=== PATIENT | female | born 1930 | race Caucasian/White ===

== ENCOUNTER 2016-11-01 10:39 | Inpatient (IN) | payer MEDICAID, MEDICARE ==
[2016-11-01] MEDS ORDERED: Acetaminophen/HYDROcodone 325-5 MG Tab PO ONE (10:57)
[2016-11-01] MEDS ORDERED: Ondansetron 4 MG Tab.DIS PO PRN (10:58)
[2016-11-01] MEDS ORDERED: HYDROmorphone 2 MG/ML SDV IVPUSH ONE (12:02)
--- NOTE | 2016-11-01 12:15 | EDM.PDOC ---
ED HPI GENERAL MEDICAL PROBLEM - General Chief Complaint: Back Pain or Injury Stated Complaint: BACK PAIN AND RIGHT HIP PAIN Time Seen by Provider: 11/01/16 11:00 Source of Information: Reports: Patient History Limitations: Reports: No Limitations - History of Present Illness INITIAL COMMENTS - FREE TEXT/NARRATIVE: Patient is an 86 year old woman who was moving totes 2 days ago. She slipped and fell onto her right hip area in the doorway area of the room she was putting her totes in. She immediately had pain in her right hip area which got worse yesterday and today. It hurts more with movement. No fever or chills, nausea or vomiting. No other complaints. Onset Date: 10/30/16 Onset Time: 19:00 Duration: Day(s): (2 days ago fell against doorway on right hip area.) Location: Reports: Pelvis, Radiates to (right hip and upper leg) Quality: Reports: Ache Severity: Moderate Improves with: Reports: Immobilization Worsens with: Reports: Movement Context: Reports: Trauma (Fell against doorway onto right hip area 2 days ago.) Associated Symptoms: Reports: No Other Symptoms Right Back Pain Score (Numeric/FACES): 10 - Related Data Allergies Allergy/AdvReac Type Severity Reaction Status Date / Time No Known Allergies Allergy Verified 11/01/16 10:55 Home Meds: Home Meds Aspirin [Halfprin] 81 mg PO DAILY 11/01/16 [History] Atenolol 50 mg PO DAILY 11/01/16 [History] Calcium Carbonate/Vitamin D3 [Calcium 600-Vit D3 800 Tab] 1 each PO DAILY [History] Clobetasol [Temovate 0.05% Oint] 1 applic TOP BID 11/01/16 [History] Loperamide [Imodium] 2 mg PO Q12HR PRN 11/01/16 [History] Mirabegron [Myrbetriq] 50 mg PO DAILY 11/01/16 [History] Multivitamin [Multi-Day Vitamins] 1 each PO DAILY 11/01/16 [History] Oxybutynin 5 mg PO TID 11/01/16 [History] Sertraline [Zoloft] 100 mg PO DAILY 11/01/16 [History] Past Medical History Endocrine/Metabolic History: Reports: Diabetes, Type II, Other (See Below) Other Endocrine/Metabolic History: diabetes controlled by diet Social & Family History - Tobacco Use Smoking Status *Q: Never Smoker - Recreational Drug Use Recreational Drug Use: No ED ROS GENERAL - Review of Systems Review Of Systems: See Below Constitutional: Reports: No Symptoms HEENT: Reports: No Symptoms Respiratory: Reports: No Symptoms Cardiovascular: Reports: No Symptoms Endocrine: Reports: No Symptoms GI/Abdominal: Reports: No Symptoms : Reports: No Symptoms Musculoskeletal: Reports: Back Pain, Joint Pain (Right hip and pelvis area.) Skin: Reports: No Symptoms Neurological: Reports: Gait Disturbance (Hurts to walk and has pain radiating down right leg.) Psychiatric: Reports: No Symptoms Hematologic/Lymphatic: Reports: No Symptoms Immunologic: Reports: No Symptoms ED EXAM,LOWER BACK PAIN/INJURY - Physical Exam Exam: See Below Exam Limited By: No Limitations General Appearance: Alert, WD/WN, No Apparent Distress Eye Exam: Bilateral Eye: EOMI, Normal Fundi, Normal Inspection, PERRL Ears: Normal External Exam, Normal Canal, Hearing Grossly Normal, Normal TMs Nose: Normal Inspection, Normal Mucosa, No Blood Throat/Mouth: Normal Inspection, Normal Lips, Normal Teeth, Normal Gums, Normal Oropharynx, Normal Voice, No Airway Compromise Head: Atraumatic, Normocephalic Neck: Normal Inspection, Supple, Non-Tender, Full Range of Motion Respiratory/Chest: No Respiratory Distress, Lungs Clear, Normal Breath Sounds, No Accessory Muscle Use, Chest Non-Tender Cardiovascular: Normal Peripheral Pulses, Regular Rate, Rhythm, No Edema, No Gallop, No JVD, No Murmur, No Rub GI/Abdominal: Normal Bowel Sounds, Soft, Non-Tender, No Organomegaly, No Distention, No Abnormal Bruit, No Mass Back Exam: Other (Lumbar region has pain, worse on the right.) Extremities: Leg Pain (Right with right hip pain.), Limited Range of Motion Neurological: Abnormal Gait (Cannot walk due to pain around right hip.) Psychiatric: Normal Affect, Normal Mood Skin Exam: Warm, Dry, Intact, Normal Color, No Rash Lymphatic: No Adenopathy Course - Vital Signs Text/Narrative:: Uneventful ED course. She got some pain relief with oral Lortab 5-325 mg and Zofran 4 mg for nausea. Her lab work was normal but her hip and pelvis x-rays showed a nondisplaced fracture of the right pelvis near the right sciatic notch. 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 Due to her pelvis fracture and her inability to ambulate she will be admitted to Dr. Keenan's service in the hospital for pain control and PT. Last Recorded V/S: Last Vital Signs Temp 37.4 C 11/01/16 10:57 Pulse 50 L 11/01/16 10:57 Resp 18 11/01/16 10:57 BP 152/100 H 11/01/16 10:57 Pulse Ox 95 11/01/16 10:57 - Orders/Labs/Meds Orders: Active Orders 24 hr Category Date Time Status Hip Min 2V or 3V w Pelvis Rt [CR] Stat Exams 11/01/16 11:26 Taken Ondansetron [Zofran ODT] Med 11/01/16 10:58 Active 4 mg PO ONETIME PRN Medication Orders Ondansetron HCl (Zofran Odt) 4 mg PO ONETIME PRN PRN Reason: Nausea Last Admin: 11/01/16 11:08 Dose: 4 mg Labs: Laboratory Tests 11/01/16 11/01/16 Range/Units 11:03 11:03 WBC 8.4 (4.5-12.0) X10-3/uL RBC 3.91 (3.23-5.20) x10(6)uL Hgb 12.7 (11.5-15.5) g/dL Hct 37.3 (30.0-51.3) % MCV 95.3 (80-96) fL MCH 32.4 (27.7-33.6) pg MCHC 34.0 (32.2-35.4) g/dL RDW 16.6 H (11.5-15.5) % Plt Count 143 (125-369) X10(3)uL MPV 8.1 (7.4-10.4) fL Neut % (Auto) 59.5 (46-82) % Lymph % (Auto) 26.2 (13-37) % [place] % (Auto) 8.0 (4-12) % Eos % (Auto) 5 (1.0-5.0) % Baso % (Auto) 1 (0-2) % Neut # (Auto) 5.0 (1.6-8.3) # Lymph # (Auto) 2.2 (0.6-5.0) # [place] # (Auto) 0.7 (0.0-1.3) # Eos # (Auto) 0.4 (0.0-0.8) # Baso # (Auto) 0.1 (0.0-0.2) # Sodium 141 (135-145) mmol/L Potassium 3.7 (3.5-5.3) mmol/L Chloride 107 (100-110) mmol/L Carbon Dioxide 28 (23-29) mmol/L BUN 12 (8-23) mg/dL Creatinine 0.7 (0.6-1.3) mg/dL Est Cr Clr Drug Dosing 53.01 mL/min Estimated GFR (MDRD) > 60 (>60) BUN/Creatinine Ratio 17.1 (9-20) Glucose 112 (80-116) mg/dL Calcium 9.9 (8.6-10.2) mg/dL Total Bilirubin 1.2 (0.1-1.3) mg/dL AST 18 (5-27) IU/L ALT 13 L (14-26) IU/L Alkaline Phosphatase 65 (56-112) IU/L Total Protein 6.9 (6.0-8.0) g/dL Albumin 3.6 (3.2-4.6) g/dL Globulin 3.3 g/dL Albumin/Globulin Ratio 1.1 Meds: Medications Generic Name Dose Route Start Last Admin Trade Name Freq PRN Reason Stop Dose Admin Ondansetron HCl 4 mg 11/01/16 10:58 11/01/16 11:08 Zofran Odt PO 4 mg ONETIME PRN Administration Nausea Discontinued Medications Generic Name Dose Route Start Last Admin Trade Name Freq PRN Reason Stop Dose Admin Hydrocodone Bitart/Acetaminophen 1 tab 11/01/16 10:57 11/01/16 11:09 [place] 325-5 Mg PO 11/01/16 10:58 1 tab ONETIME ONE Administration Hydromorphone HCl 0.5 mg 11/01/16 12:02 Dilaudid IVPUSH 11/01/16 12:03 ONETIME ONE Departure - Departure Time of Disposition: 12:29 Disposition: Admitted As Inpatient 65 Condition: Good Clinical Impression: Pelvis fracture, right - Discharge Information Forms: ED Department Discharge - My Orders Last 24 Hours: My Active Orders 11/01/16 10:58 Ondansetron [Zofran ODT] 4 mg PO ONETIME PRN 11/01/16 11:26 Hip Min 2V or 3V w Pelvis Rt [CR] Stat - Assessment/Plan Last 24 Hours: My Active Orders 11/01/16 10:58 Ondansetron [Zofran ODT] 4 mg PO ONETIME PRN 11/01/16 11:26 Hip Min 2V or 3V w Pelvis Rt [CR] Stat
[2016-11-01] MEDS ORDERED: Sodium Chloride 0.9% 10 ML Syringe FLUSH PRN (13:18)
[2016-11-01] MEDS ORDERED: Loperamide 2 MG Cap PO PRN (13:21)
[2016-11-01] MEDS ORDERED: Morphine 2 MG/ML Syringe IVPUSH PRN (13:22)
--- NOTE | 2016-11-01 13:28 | PCM.HP ---
H&P History of Present Illness - General Date of Service: 11/01/16 Admit Problem/Dx: Admission Diagnosis/Problem Admission Diagnosis/Problem Closed fracture of pelvis Source of Information: Patient History Limitations: Reports: No Limitations - History of Present Illness Initial Comments - Free Text/Narative: This is an 86-year-old female patient states she fell against a door frame 2 days ago. She states she has some pain yesterday in her right lower back and then today she couldn't get up. She is brought to the ER and found to have a pelvic fracture per ER doctor. He stated that hydrocodone did not touch her pain she had have Dilaudid. So she was admitted for pain control, PT/OT. She has a little bit of pain in her right leg when she was the lipase she has no strength loss or legs, or weakness. She has incontinence normally with no bowel or bladder dysfunction other than the normal. She denies dysuria, pyuria, hematuria. She's not been ill. Right Back Pain Score (Numeric/FACES): 9 - Related Data Allergies/Adverse Reactions: Allergies Allergy/AdvReac Type Severity Reaction Status Date / Time No Known Allergies Allergy Verified 11/01/16 10:55 Home Medications: Home Meds Aspirin [Halfprin] 81 mg PO DAILY 11/01/16 [History] Atenolol 50 mg PO DAILY 11/01/16 [History] Calcium Carbonate/Vitamin D3 [Calcium 600-Vit D3 800 Tab] 1 each PO DAILY [History] Clobetasol [Temovate 0.05% Oint] 1 applic TOP BID 11/01/16 [History] Loperamide [Imodium] 2 mg PO Q12HR PRN 11/01/16 [History] Mirabegron [Myrbetriq] 50 mg PO DAILY 11/01/16 [History] Multivitamin [Multi-Day Vitamins] 1 each PO DAILY 11/01/16 [History] Oxybutynin 5 mg PO TID 11/01/16 [History] Sertraline [Zoloft] 100 mg PO DAILY 11/01/16 [History] Past Medical History HEENT History: Reports: Other (See Below) (Hearing loss) Cardiovascular History: Reports: Hypertension Genitourinary History: Reports: Urinary Incontinence, Other (See Below) ( Overactive bladder) Psychiatric History: Reports: Depression Endocrine/Metabolic History: Reports: Diabetes, Type II, Other (See Below) Other Endocrine/Metabolic History: diabetes controlled by diet Social & Family History - Tobacco Use Smoking Status *Q: Never Smoker Second Hand Smoke Exposure: No - Caffeine Use Caffeine Use: Reports: Coffee Caffeine Use Comment: 4 cups per day - Recreational Drug Use Recreational Drug Use: No H&P Review of Systems - Review of Systems: Review Of Systems: See Below General: Reports: No Symptoms HEENT: Reports: No Symptoms Pulmonary: Reports: Shortness of Breath (Normal for her she states). Denies: Wheezing, Sputum, Hemoptysis Cardiovascular: Reports: No Symptoms Gastrointestinal: Reports: No Symptoms Genitourinary: Reports: Incontinence (Normal for her) Musculoskeletal: Reports: Back Pain Skin: Reports: No Symptoms Psychiatric: Reports: No Symptoms Neurological: Reports: No Symptoms Hematologic/Lymphatic: Reports: No Symptoms Immunologic: Reports: No Symptoms Exam - Exam Exam: See Below - Vital Signs Vital Signs: Last Vital Signs Temp 98.1 F 11/01/16 12:49 Pulse 49 L 11/01/16 12:49 Resp 18 11/01/16 12:49 BP 217/92 H 11/01/16 12:49 Pulse Ox 94 L 11/01/16 12:49 Weight: 153 lb - Exam General: Alert, Oriented, Cooperative, Other (Hard of hearing) HEENT: PERRLA, Posterior Pharynx Clear, TMs Clear Neck: Supple, Trachea Midline Lungs: Clear to Auscultation, Normal Respiratory Effort. No: Crackles, Rales, Rhonchi Cardiovascular: Regular Rate, Regular Rhythm, Normal S1, Normal S2. No: Systolic Murmur, Diastolic Murmur GI/Abdominal Exam: Normal Bowel Sounds, Soft, Non-Tender, No Distention, No Mass Back Exam: Normal Inspection, Muscle Spasm Extremities: Normal Inspection, Non-Tender, No Pedal Edema Skin: Warm, Dry, Intact Neurological: Normal Speech, Normal Tone Neuro Extensive - Mental Status: Alert, Oriented x3, Normal Mood/Affect, Normal Cognition, Memory Intact Psychiatric: Alert, Normal Affect, Normal Mood - Patient Data Result Diagrams: 11/01/16 11:03 11/01/16 11:03 *Q Meaningful Use (ADM) - VTE *Q VTE Criteria *Q: - Stroke *Q Stroke Criteria *Q: - AMI *Q AMI Criteria *Q: - Problem List (1) Hypertension SNOMED Code(s): 15387861 ICD Code: I10 - ESSENTIAL (PRIMARY) HYPERTENSION Status: Acute Priority: Low Current Visit: Yes (2) Diabetes type 2, controlled SNOMED Code(s): 72506356 ICD Code: E11.9 - TYPE 2 DIABETES MELLITUS WITHOUT COMPLICATIONS Status: Acute Priority: Low Current Visit: Yes (3) Urinary incontinence SNOMED Code(s): 057990746 ICD Code: R32 - UNSPECIFIED URINARY INCONTINENCE Status: Acute Current Visit: No (4) Palliative care status SNOMED Code(s): 134842859 ICD Code: Z51.5 - ENCOUNTER FOR PALLIATIVE CARE Status: Acute Current Visit: Yes (5) Depression SNOMED Code(s): 73999959 ICD Code: F32.9 - MAJOR DEPRESSIVE DISORDER, SINGLE EPISODE, UNSPECIFIED Status: Acute Current Visit: No (6) Pelvis fracture, right SNOMED Code(s): 79210691 ICD Code: S32.9XXA - FRACTURE OF UNSP PARTS OF LUMBOSACRAL SPINE AND PELVIS, INIT Status: Acute Current Visit: Yes Problem List Initiated/Reviewed/Updated: Yes Orders Last 24hrs: Active Orders 24 hr Category Date Time Status Patient Status [ADT] Routine ADT 11/01/16 13:18 Active Bedrest Bedside Commode [RC] ASDIRECTED Care 11/01/16 13:18 Active Blood Glucose Check, Bedside [RC] BIDMEALS Care 11/01/16 13:18 Active Oxygen Therapy [RC] PRN Care 11/01/16 13:18 Active VTE/DVT Education [RC] Per Unit Routine Care 11/01/16 13:18 Active Vital Signs [RC] Q4H Care 11/01/16 13:18 Active OT Evaluation and Treatment [CONS] Routine Cons 11/01/16 13:18 Active PT Evaluation and Treatment [CONS] Routine Cons 11/01/16 13:18 Active Regular Diet [DIET] Diet 11/01/16 Dinner Active Aspirin [Halfprin] Med 11/02/16 09:00 Active 81 mg PO DAILY Atenolol [Tenormin] Med 11/02/16 09:00 Active 50 mg PO DAILY Calcium Carbonate/Vitamin D3 [Calcium 600-Vit D3 800 Med 11/02/16 09:00 Ordered Tab] 1 each PO DAILY Clobetasol [Temovate 0.05% Oint] Med 11/01/16 21:00 Ordered DOSE gm TOP BID Enoxaparin [Lovenox] Med 11/01/16 13:30 Ordered 30 mg SUBCUT DAILY Loperamide [Imodium] Med 11/01/16 13:21 Ordered 2 mg PO Q12HR PRN Mirabegron [Myrbetriq] Med 11/02/16 09:00 Ordered 50 mg PO DAILY Morphine Med 11/01/16 13:22 Ordered 2 mg IVPUSH Q2H PRN Multivitamins [Tab-A-Bessie] Med 11/02/16 09:00 Ordered DOSE tab PO DAILY Oxybutynin Med 11/01/16 14:00 Ordered 5 mg PO TID Sertraline [Zoloft] Med 11/02/16 09:00 Ordered 100 mg PO DAILY Sodium Chloride 0.9% [Saline Flush] Med 11/01/16 13:18 Active 10 ml FLUSH ASDIRECTED PRN traMADol [Ultram] Med 11/01/16 13:30 Ordered 50 mg PO Q6H Saline Lock Insert [OM.PC] Routine Oth 11/01/16 13:18 Ordered Sequential Compression Device [OM.PC] Per Unit Routine Oth 11/01/16 13:19 Ordered Resuscitation Status Routine Resus Stat 11/01/16 13:18 Ordered Medication Orders Aspirin (Halfprin) 81 mg PO DAILY [facility] Atenolol (Tenormin) 50 mg PO DAILY [facility] Clobetasol Propionate (Temovate 0.05% Oint) gm TOP BID [facility] Enoxaparin Sodium (Lovenox) 30 mg SUBCUT DAILY [facility] Loperamide HCl (Imodium) 2 mg PO Q12HR PRN PRN Reason: Diarrhea Multivitamins/Minerals/Vitamin C (Tab-A-Bessie) tab PO DAILY [facility] Non-Formulary Medication (Calcium Carbonate/Vitamin D3 [Calcium 600-Vit D3 800 Tab]) 1 each PO DAILY [facility] Non-Formulary Medication (Mirabegron [Myrbetriq]) 50 mg PO DAILY [facility] Ondansetron HCl (Zofran Odt) 4 mg PO ONETIME PRN PRN Reason: Nausea Last Admin: 11/01/16 11:08 Dose: 4 mg Sodium Chloride (Saline Flush) 10 ml FLUSH ASDIRECTED PRN PRN Reason: Keep Vein Open Assessment/Plan Comment:: 1. Patient unable to walk so admit her for acute inpatient. 2. Tramadol 50 mg 4 times a day with MS IV when necessary. 3. Regular diet this gluten-free. She's been controlling her diet on a regular diet. 4. Accu-Cheks twice a day. Her blood sugars run high will consider diabetic diet. 5. Patient wants to be a full code. 6. Bed rest with bedside commode 7. PT/OT 8. Continue her home medications.
[2016-11-01] MEDS: traMADol 50 MG Tab PO SCH ×2 (14:02→19:21)
[2016-11-01] MEDS: Oxybutynin 5 MG Tab PO SCH ×2 (14:02→20:11)
[2016-11-01] MEDS: Enoxaparin 40 MG/0.4 ML Syringe SUBCUT SCH (14:03)
[2016-11-01] MEDS: Clobetasol 0.05% Ointment 15 GM Tube TOP SCH (21:45)
[2016-11-02] MEDS: traMADol 50 MG Tab PO SCH ×4 (02:15→21:05)
--- NOTE | 2016-11-02 08:20 | PCM.PN ---
- General Info Date of Service: 11/02/16 Admission Dx/Problem (Free Text): Patient states she has some chest pressure that started last night. She thinks is from sleeping on her back. She normally sleeps on her right side. She denies shortness of breath, arm pain, jaw pain, nausea, diaphoresis. She still have an back pain on the right side but the tramadol's helping. Nurses report her heart rate was in the 40s last night and oxygen saturations low. - Patient Data Vitals - Most Recent: Last Vital Signs Temp 98 F 11/02/16 04:00 Pulse 48 L 11/02/16 04:00 Resp 18 11/02/16 00:00 BP 178/71 H 11/02/16 00:00 Pulse Ox 91 L 11/02/16 00:00 Weight - Most Recent: 153 lb Lab Results Last 24 Hours: Laboratory Results - last 24 hr 11/01/16 Range/Units 17:26 POC Glucose 141 H (80-116) mg/dL Med Orders - Current: Current Medications Aspirin (Halfprin) 81 mg PO DAILY [facility] Atenolol (Tenormin) 50 mg PO DAILY [facility] Calcium Carbonate (Calcium Carbonate/Vitamin D 1250 Mg-200 Unit) 1 tab PO DAILY [facility] Clobetasol Propionate (Temovate 0.05% Oint) 0 gm TOP BID [facility] Last Admin: 11/01/16 21:45 Dose: Not Given Enoxaparin Sodium (Lovenox) 40 mg SUBCUT DAILY [facility] Last Admin: 11/01/16 14:03 Dose: 40 mg Loperamide HCl (Imodium) 2 mg PO Q12H PRN PRN Reason: Diarrhea Morphine Sulfate (Morphine) 2 mg IVPUSH Q2H PRN PRN Reason: Pain Multivitamins/Minerals/Vitamin C (Tab-A-Bessie) 1 tab PO DAILY [facility] Mirabegron [ Myrbetriq] 50 MgPt Own 50 mg PO DAILY [facility] Ondansetron HCl (Zofran Odt) 4 mg PO ONETIME PRN PRN Reason: Nausea Last Admin: 11/01/16 11:08 Dose: 4 mg Oxybutynin Chloride (Oxybutynin) 5 mg PO TID [facility] Last Admin: 11/01/16 20:11 Dose: 5 mg Sertraline HCl (Zoloft) 100 mg PO DAILY [facility] Sodium Chloride (Saline Flush) 10 ml FLUSH ASDIRECTED PRN PRN Reason: Keep Vein Open Tramadol HCl (Ultram) 50 mg PO Q6H [facility] Last Admin: 11/02/16 02:15 Dose: 50 mg Discontinued Medications Hydrocodone Bitart/Acetaminophen ([place] 325-5 Mg) 1 tab PO ONETIME ONE Stop: 11/01/16 10:58 Last Admin: 11/01/16 11:09 Dose: 1 tab Hydromorphone HCl (Dilaudid) 0.5 mg IVPUSH ONETIME ONE Stop: 11/01/16 12:03 Last Admin: 11/01/16 12:21 Dose: Not Given - Exam General: Alert, Oriented, Cooperative Lungs: Clear to Auscultation, Normal Respiratory Effort Cardiovascular: Regular Rate, Regular Rhythm, No Murmurs Extremities: No Pedal Edema - Problem List & Annotations (1) Hypertension SNOMED Code(s): 03627532 Code(s): I10 - ESSENTIAL (PRIMARY) HYPERTENSION Status: Acute Priority: Low Current Visit: Yes (2) Diabetes type 2, controlled SNOMED Code(s): 33769497 Code(s): E11.9 - TYPE 2 DIABETES MELLITUS WITHOUT COMPLICATIONS Status: Acute Priority: Low Current Visit: Yes (3) Urinary incontinence SNOMED Code(s): 341426646 Code(s): R32 - UNSPECIFIED URINARY INCONTINENCE Status: Acute Current Visit: No (4) Palliative care status SNOMED Code(s): 822810625 Code(s): Z51.5 - ENCOUNTER FOR PALLIATIVE CARE Status: Acute Current Visit: Yes (5) Depression SNOMED Code(s): 10714780 Code(s): F32.9 - MAJOR DEPRESSIVE DISORDER, SINGLE EPISODE, UNSPECIFIED Status: Acute Current Visit: No (6) Pelvis fracture, right SNOMED Code(s): 30499860 Code(s): S32.9XXA - FRACTURE OF UNSP PARTS OF LUMBOSACRAL SPINE AND PELVIS, INIT Status: Acute Current Visit: Yes (7) Bradycardia SNOMED Code(s): 88580743 Code(s): R00.1 - BRADYCARDIA, UNSPECIFIED Status: Acute Current Visit: Yes (8) Hypoxia SNOMED Code(s): 759821151, 548197985 Code(s): R09.02 - HYPOXEMIA Status: Acute Current Visit: Yes (9) Chest pain SNOMED Code(s): 19956616 Code(s): R07.9 - CHEST PAIN, UNSPECIFIED Status: Acute Current Visit: Yes - Problem List Review Problem List Initiated/Reviewed/Updated: Yes - My Orders Last 24 Hours: My Active Orders 11/01/16 13:18 Patient Status [ADT] Routine Bedrest Bedside Commode [RC] ASDIRECTED Blood Glucose Check, Bedside [RC] 07,1730 Oxygen Therapy [RC] PRN Vital Signs [RC] 04,08,12,16,20,00 OT Evaluation and Treatment [CONS] Routine PT Evaluation and Treatment [CONS] Routine Sodium Chloride 0.9% [Saline Flush] 10 ml FLUSH ASDIRECTED PRN Saline Lock Insert [OM.PC] Routine Resuscitation Status Routine 11/01/16 13:19 Sequential Compression Device [OM.PC] Per Unit Routine 11/01/16 13:21 Loperamide [Imodium] 2 mg PO Q12H PRN 11/01/16 13:22 Morphine 2 mg IVPUSH Q2H PRN 11/01/16 13:30 Enoxaparin [Lovenox] 40 mg SUBCUT DAILY traMADol [Ultram] 50 mg PO Q6H 11/01/16 14:00 Oxybutynin 5 mg PO TID 11/01/16 21:00 Clobetasol [Temovate 0.05% Oint] 0 gm TOP BID 11/01/16 Dinner Regular Diet [DIET] 11/02/16 07:39 UA W/MICROSCOPIC [URIN] Routine 11/02/16 09:00 Aspirin [Halfprin] 81 mg PO DAILY Atenolol [Tenormin] 50 mg PO DAILY Calcium Carbonate/Vitamin D3 [Calcium Carbonate/Vitamin D 1250 MG-200 Unit] 1 tab PO DAILY Mirabegron [Myrbetriq] 50 mg PO DAILY Multivitamins [Tab-A-Bessie] 1 tab PO DAILY Sertraline [Zoloft] 100 mg PO DAILY - Assessment Assessment:: 1. EKG, troponin, chest x-ray portable 2. Telemetry to watch her heart rate. 3. O2 to keep sats greater than 88%. 4. Up in chair and she may transfer to chair. - Plan Plan:: 1. Patient unable to walk so admit her for acute inpatient. 2. Tramadol 50 mg 4 times a day with MS IV when necessary. 3. Regular diet this gluten-free. She's been controlling her diet on a regular diet. 4. Accu-Cheks twice a day. Her blood sugars run high will consider diabetic diet. 5. Patient wants to be a full code. 6. Bed rest with bedside commode 7. PT/OT 8. Continue her home medications.
[2016-11-02] MEDS: Aspirin 81 MG Tab.EC PO SCH (08:42)
[2016-11-02] MEDS: Calcium Carbonate/Vitamin D3 1250 MG-200 Unit Tab PO SCH (08:42)
[2016-11-02] MEDS: Enoxaparin 40 MG/0.4 ML Syringe SUBCUT SCH (08:43)
[2016-11-02] MEDS: MIRABEGRON 50 MG PO SCH ×2 (08:44→10:12)
[2016-11-02] MEDS: Multivitamin Tab PO SCH (08:45)
[2016-11-02] MEDS: Oxybutynin 5 MG Tab PO SCH ×3 (08:45→21:05)
[2016-11-02] MEDS: Lisinopril 10 MG Tab PO SCH (08:51)
[2016-11-02] MEDS ORDERED: Sertraline 100 MG Tab PO SCH (09:00)
[2016-11-02] MEDS ORDERED: Atenolol 50 MG Tab PO SCH (09:00)
[2016-11-02] MEDS ORDERED: Sertraline 50 MG Tab ONE (09:01)
[2016-11-02] MEDS ORDERED: Sertraline 50 MG Tab PO ONE (09:15)
[2016-11-02] MEDS: Clobetasol 0.05% Ointment 15 GM Tube TOP SCH ×2 (10:13→21:05)
[2016-11-03] MEDS: traMADol 50 MG Tab PO SCH ×4 (02:08→20:37)
--- NOTE | 2016-11-03 08:05 | PCM.PN ---
- General Info Date of Service: 11/03/16 Admission Dx/Problem (Free Text): Patient states she still has her right low back pain. She says a tramadol does help considerably. She states a couple weeks ago she had her chest in her tub. And therefore she's been having chest wall pain. She has some this morning. Hurts when she moves in certain directions. - Patient Data Vitals - Most Recent: Last Vital Signs Temp 97 F 11/03/16 02:22 Pulse 79 11/03/16 04:00 Resp 18 11/03/16 04:00 BP 168/70 H 11/03/16 04:00 Pulse Ox 91 L 11/03/16 04:00 Weight - Most Recent: 153 lb I&O - Last 24 Hours: Intake & Output 11/02/16 11/03/16 11/03/16 22:59 06:59 14:59 Intake Total 150 150 Balance 150 150 Lab Results Last 24 Hours: Laboratory Results - last 24 hr 11/02/16 11/02/16 11/02/16 Range/Units 07:14 08:32 11:25 POC Glucose 106 (80-116) mg/dL Troponin I < 0.01 L (0.02-0.06) NG/ML Urine Color Yellow (YELLOW) Urine Appearance Clear (CLEAR) Urine pH 6.5 (5.0-6.5) Ur Specific [place] 1.015 (1.010-1.025) Urine Protein Negative (NEGATIVE) mg/dL Urine Glucose (UA) Normal (NEGATIVE) mg/dL Urine Ketones Negative (NEGATIVE) mg/dL Urine Occult Blood Negative (NEGATIVE) Urine Nitrite Negative (NEGATIVE) Urine Bilirubin Negative (NEGATIVE) Urine Urobilinogen Normal (NEGATIVE) mg/dL Ur Leukocyte Esterase Negative (NEGATIVE) Urine RBC Not seen (0) Urine WBC 0-5 (0) Ur Squamous Epith Cells Few H (NS,R,O) Urine Bacteria Rare H (NS) 11/02/16 Range/Units 16:55 POC Glucose 133 H (80-116) mg/dL Troponin I (0.02-0.06) NG/ML Urine Color (YELLOW) Urine Appearance (CLEAR) Urine pH (5.0-6.5) Ur Specific [place] (1.010-1.025) Urine Protein (NEGATIVE) mg/dL Urine Glucose (UA) (NEGATIVE) mg/dL Urine Ketones (NEGATIVE) mg/dL Urine Occult Blood (NEGATIVE) Urine Nitrite (NEGATIVE) Urine Bilirubin (NEGATIVE) Urine Urobilinogen (NEGATIVE) mg/dL Ur Leukocyte Esterase (NEGATIVE) Urine RBC (0) Urine WBC (0) Ur Squamous Epith Cells (NS,R,O) Urine Bacteria (NS) Med Orders - Current: Current Medications Aspirin (Halfprin) 81 mg PO DAILY [facility] Last Admin: 11/02/16 08:42 Dose: 81 mg Calcium Carbonate (Calcium Carbonate/Vitamin D 1250 Mg-200 Unit) 1 tab PO DAILY [facility] Last Admin: 11/02/16 08:42 Dose: 1 tab Clobetasol Propionate (Temovate 0.05% Oint) 0 gm TOP BID [facility] Last Admin: 11/02/16 21:05 Dose: 1 applic Enoxaparin Sodium (Lovenox) 40 mg SUBCUT DAILY [facility] Last Admin: 11/02/16 08:43 Dose: 40 mg Lisinopril (Prinivil) 10 mg PO DAILY [facility] Last Admin: 11/02/16 08:51 Dose: 10 mg Loperamide HCl (Imodium) 2 mg PO Q12H PRN PRN Reason: Diarrhea Morphine Sulfate (Morphine) 2 mg IVPUSH Q2H PRN PRN Reason: Pain Last Admin: 11/02/16 12:55 Dose: 2 mg Multivitamins/Minerals/Vitamin C (Tab-A-Bessie) 1 tab PO DAILY [facility] Last Admin: 11/02/16 08:45 Dose: 1 tab Mirabegron [ Myrbetriq] 50 MgPt Own 50 mg PO DAILY [facility] Last Admin: 11/02/16 10:12 Dose: Not Given Ondansetron HCl (Zofran Odt) 4 mg PO ONETIME PRN PRN Reason: Nausea Last Admin: 11/01/16 11:08 Dose: 4 mg Oxybutynin Chloride (Oxybutynin) 5 mg PO TID [facility] Last Admin: 11/02/16 21:05 Dose: 5 mg Sertraline HCl (Zoloft) 100 mg PO DAILY [facility] Sodium Chloride (Saline Flush) 10 ml FLUSH ASDIRECTED PRN PRN Reason: Keep Vein Open Last Admin: 11/02/16 12:54 Dose: 10 ml Tramadol HCl (Ultram) 50 mg PO Q6H [facility] Last Admin: 11/03/16 02:08 Dose: 50 mg Discontinued Medications Hydrocodone Bitart/Acetaminophen ([place] 325-5 Mg) 1 tab PO ONETIME ONE Stop: 11/01/16 10:58 Last Admin: 11/01/16 11:09 Dose: 1 tab Atenolol (Tenormin) 50 mg PO DAILY [facility] Hydromorphone HCl (Dilaudid) 0.5 mg IVPUSH ONETIME ONE Stop: 11/01/16 12:03 Last Admin: 11/01/16 12:21 Dose: Not Given Sertraline HCl (Zoloft) 100 mg PO DAILY [facility] Sertraline HCl (Zoloft) Confirm Administered Dose 100 mg .ROUTE .STK-MED ONE Stop: 11/02/16 09:02 Last Admin: 11/02/16 10:11 Dose: Not Given Sertraline HCl (Zoloft) 100 mg PO ONETIME ONE Stop: 11/02/16 09:16 Last Admin: 11/02/16 10:11 Dose: 100 mg - Exam General: Alert, Oriented, Cooperative Lungs: Clear to Auscultation, Normal Respiratory Effort Cardiovascular: Regular Rate, Regular Rhythm, No Murmurs, Other (Chest wall pain right side on palpation.) - Problem List & Annotations (1) Hypertension SNOMED Code(s): 87177965 Code(s): I10 - ESSENTIAL (PRIMARY) HYPERTENSION Status: Acute Priority: Low Current Visit: Yes (2) Diabetes type 2, controlled SNOMED Code(s): 29918575 Code(s): E11.9 - TYPE 2 DIABETES MELLITUS WITHOUT COMPLICATIONS Status: Acute Priority: Low Current Visit: Yes (3) Urinary incontinence SNOMED Code(s): 240669038 Code(s): R32 - UNSPECIFIED URINARY INCONTINENCE Status: Acute Current Visit: No (4) Palliative care status SNOMED Code(s): 000130002 Code(s): Z51.5 - ENCOUNTER FOR PALLIATIVE CARE Status: Acute Current Visit: Yes (5) Depression SNOMED Code(s): 45579881 Code(s): F32.9 - MAJOR DEPRESSIVE DISORDER, SINGLE EPISODE, UNSPECIFIED Status: Acute Current Visit: No (6) Pelvis fracture, right SNOMED Code(s): 45565713 Code(s): S32.9XXA - FRACTURE OF UNSP PARTS OF LUMBOSACRAL SPINE AND PELVIS, INIT Status: Acute Current Visit: Yes (7) Bradycardia SNOMED Code(s): 22524372 Code(s): R00.1 - BRADYCARDIA, UNSPECIFIED Status: Acute Current Visit: Yes (8) Hypoxia SNOMED Code(s): 280623657, 274176120 Code(s): R09.02 - HYPOXEMIA Status: Acute Current Visit: Yes (9) Chest wall pain SNOMED Code(s): 760612698 Code(s): R07.89 - OTHER CHEST PAIN Status: Acute Current Visit: Yes (10) Palliative care patient SNOMED Code(s): 795564644 Code(s): Z51.5 - ENCOUNTER FOR PALLIATIVE CARE Status: Acute Current Visit: Yes - Problem List Review Problem List Initiated/Reviewed/Updated: Yes - My Orders Last 24 Hours: My Active Orders 11/02/16 08:21 EKG Documentation Completion [RC] ASDIRECTED Telemetry Monitoring [Cardiac Monitoring] [RC] EKG 12 Lead [EK] Stat 11/02/16 08:22 CXR [Chest 1V Frontal] [CR] Routine 11/02/16 08:23 Up to Chair [RC] ASDIRECTED 11/02/16 09:00 Aspirin [Halfprin] 81 mg PO DAILY Calcium Carbonate/Vitamin D3 [Calcium Carbonate/Vitamin D 1250 MG-200 Unit] 1 tab PO DAILY Lisinopril [Prinivil] 10 mg PO DAILY Mirabegron [Myrbetriq] 50 mg PO DAILY Multivitamins [Tab-A-Bessie] 1 tab PO DAILY 11/03/16 09:00 Sertraline [Zoloft] 100 mg PO DAILY - Plan Plan:: 1. DC telemetry 2. PT/OT eval today. 3. DC IV. 4. Start lisinopril for elevated blood pressure.
[2016-11-03] MEDS ORDERED: Lisinopril 10 MG Tab PO SCH (09:00)
[2016-11-03] MEDS ORDERED: Sertraline 50 MG Tab PO SCH (09:00)
[2016-11-03] MEDS: Aspirin 81 MG Tab.EC PO SCH (10:05)
[2016-11-03] MEDS: Enoxaparin 40 MG/0.4 ML Syringe SUBCUT SCH (10:05)
[2016-11-03] MEDS: Calcium Carbonate/Vitamin D3 1250 MG-200 Unit Tab PO SCH (10:05)
[2016-11-03] MEDS: Oxybutynin 5 MG Tab PO SCH ×3 (10:06→20:38)
[2016-11-03] MEDS: Lisinopril 10 MG Tab PO SCH (10:06)
[2016-11-03] MEDS: Multivitamin Tab PO SCH (10:07)
[2016-11-03] MEDS: Clobetasol 0.05% Ointment 15 GM Tube TOP SCH ×2 (10:08→20:38)
[2016-11-03] MEDS: Sertraline 100 MG Tab PO SCH (10:28)
--- NOTE | 2016-11-03 12:27 | CR ---
INDICATION: Right hip pain. RIGHT HIP: Frontal and lateral views of the right hip revealed mild hypertrophic degenerative changes compatible with osteoarthritis. A definite fracture or dislocation or other definite bone or joint abnormality was not identified. IMPRESSION: Mild osteoarthritis right hip. MTDD
--- NOTE | 2016-11-03 12:32 | CR ---
INDICATION: Hypoxia. CHEST: An AP upright view of the chest was obtained 11/02/2016 and was compared with 08/05/2008, revealing poor inspiration, emphasizing markings and heart size. Heart may be slightly enlarged but most likely is within normal range. The aorta is somewhat tortuous. Overlying EKG leads are noted. Overlying snaps are seen. A definite active infiltrate or effusion was not identified. The upper lung field pulmonary vasculature appears somewhat prominent, which could be on the basis of mild or early CHF or fluid overload or other etiology of pulmonary vascular congestion. This should be correlated clinically. No consolidating pneumonia or effusion was seen. IMPRESSION: No definite acute process; however, there may be a mild degree of pulmonary vascular congestion, which could be on the basis of acute myocardial event or other cause, such as fluid overload or renal failure. MTDD
[2016-11-03] MEDS: MIRABEGRON 50 MG PO SCH (13:20)
[2016-11-04] MEDS: traMADol 50 MG Tab PO SCH ×4 (01:45→19:54)
--- NOTE | 2016-11-04 07:49 | PCM.PN ---
- General Info Date of Service: 11/04/16 Admission Dx/Problem (Free Text): Patient is without complaints. She states she was able to transfer from bed to the bathroom last night. So some pain - Patient Data Vitals - Most Recent: Last Vital Signs Temp 97.5 F 11/04/16 01:45 Pulse 54 L 11/04/16 01:45 Resp 18 11/04/16 01:45 BP 126/64 11/04/16 01:45 Pulse Ox 92 L 11/04/16 01:45 Weight - Most Recent: 153 lb I&O - Last 24 Hours: Intake & Output 11/03/16 11/04/16 11/04/16 22:59 06:59 14:59 Intake Total 200 Output Total 350 Balance -150 Lab Results Last 24 Hours: Laboratory Results - last 24 hr 11/03/16 11/03/16 11/04/16 Range/Units 07:31 17:37 06:27 POC Glucose 129 H 124 H 104 (80-116) mg/dL Med Orders - Current: Current Medications Aspirin (Halfprin) 81 mg PO DAILY [facility] Last Admin: 11/03/16 10:05 Dose: 81 mg Calcium Carbonate (Calcium Carbonate/Vitamin D 1250 Mg-200 Unit) 1 tab PO DAILY [facility] Last Admin: 11/03/16 10:05 Dose: 1 tab Clobetasol Propionate (Temovate 0.05% Oint) 0 gm TOP BID [facility] Last Admin: 11/03/16 20:38 Dose: 1 applic Enoxaparin Sodium (Lovenox) 40 mg SUBCUT DAILY [facility] Last Admin: 11/03/16 10:05 Dose: 40 mg Lisinopril (Prinivil) 10 mg PO DAILY [facility] Last Admin: 11/03/16 10:06 Dose: 10 mg Loperamide HCl (Imodium) 2 mg PO Q12H PRN PRN Reason: Diarrhea Morphine Sulfate (Morphine) 2 mg IVPUSH Q2H PRN PRN Reason: Pain Last Admin: 11/02/16 12:55 Dose: 2 mg Multivitamins/Minerals/Vitamin C (Tab-A-Bessie) 1 tab PO DAILY [facility] Last Admin: 11/03/16 10:07 Dose: 1 tab Mirabegron [ Myrbetriq] 50 MgPt Own 50 mg PO DAILY [facility] Last Admin: 11/03/16 13:20 Dose: 50 mg Ondansetron HCl (Zofran Odt) 4 mg PO ONETIME PRN PRN Reason: Nausea Last Admin: 11/01/16 11:08 Dose: 4 mg Oxybutynin Chloride (Oxybutynin) 5 mg PO TID [facility] Last Admin: 11/03/16 20:38 Dose: 5 mg Sertraline HCl (Zoloft) 100 mg PO DAILY [facility] Last Admin: 11/03/16 10:28 Dose: 100 mg Tramadol HCl (Ultram) 50 mg PO Q6H [facility] Last Admin: 11/04/16 01:45 Dose: 50 mg Discontinued Medications Hydrocodone Bitart/Acetaminophen ([place] 325-5 Mg) 1 tab PO ONETIME ONE Stop: 11/01/16 10:58 Last Admin: 11/01/16 11:09 Dose: 1 tab Atenolol (Tenormin) 50 mg PO DAILY [facility] Hydromorphone HCl (Dilaudid) 0.5 mg IVPUSH ONETIME ONE Stop: 11/01/16 12:03 Last Admin: 11/01/16 12:21 Dose: Not Given Sertraline HCl (Zoloft) 100 mg PO DAILY [facility] Sertraline HCl (Zoloft) Confirm Administered Dose 100 mg .ROUTE .STK-MED ONE Stop: 11/02/16 09:02 Last Admin: 11/02/16 10:11 Dose: Not Given Sertraline HCl (Zoloft) 100 mg PO DAILY [facility] Sertraline HCl (Zoloft) 100 mg PO ONETIME ONE Stop: 11/02/16 09:16 Last Admin: 11/02/16 10:11 Dose: 100 mg Sodium Chloride (Saline Flush) 10 ml FLUSH ASDIRECTED PRN PRN Reason: Keep Vein Open Last Admin: 11/02/16 12:54 Dose: 10 ml - Exam General: Alert, Oriented, Cooperative Lungs: Clear to Auscultation, Normal Respiratory Effort Cardiovascular: Regular Rate, Regular Rhythm, No Murmurs - Problem List & Annotations (1) Hypertension SNOMED Code(s): 53836635 Code(s): I10 - ESSENTIAL (PRIMARY) HYPERTENSION Status: Acute Priority: Low Current Visit: Yes (2) Diabetes type 2, controlled SNOMED Code(s): 54716463 Code(s): E11.9 - TYPE 2 DIABETES MELLITUS WITHOUT COMPLICATIONS Status: Acute Priority: Low Current Visit: Yes (3) Urinary incontinence SNOMED Code(s): 155082713 Code(s): R32 - UNSPECIFIED URINARY INCONTINENCE Status: Acute Current Visit: No (4) Palliative care status SNOMED Code(s): 729542131 Code(s): Z51.5 - ENCOUNTER FOR PALLIATIVE CARE Status: Acute Current Visit: Yes (5) Depression SNOMED Code(s): 25138376 Code(s): F32.9 - MAJOR DEPRESSIVE DISORDER, SINGLE EPISODE, UNSPECIFIED Status: Acute Current Visit: No (6) Pelvis fracture, right SNOMED Code(s): 39483254 Code(s): S32.9XXA - FRACTURE OF UNSP PARTS OF LUMBOSACRAL SPINE AND PELVIS, INIT Status: Acute Current Visit: Yes (7) Bradycardia SNOMED Code(s): 90016847 Code(s): R00.1 - BRADYCARDIA, UNSPECIFIED Status: Acute Current Visit: Yes (8) Hypoxia SNOMED Code(s): 922979223, 397996711 Code(s): R09.02 - HYPOXEMIA Status: Acute Current Visit: Yes (9) Chest wall pain SNOMED Code(s): 585416659 Code(s): R07.89 - OTHER CHEST PAIN Status: Acute Current Visit: Yes (10) Palliative care patient SNOMED Code(s): 664848556 Code(s): Z51.5 - ENCOUNTER FOR PALLIATIVE CARE Status: Acute Current Visit: Yes - Problem List Review Problem List Initiated/Reviewed/Updated: Yes - My Orders Last 24 Hours: My Active Orders 11/03/16 08:07 Discontinue Saline Lock [Peripheral IV Discontinue] [OM.PC] Routine 11/03/16 10:00 Sertraline [Zoloft] 100 mg PO DAILY 11/03/16 10:35 IS (RT) [RT Incentive Spirometry] [RC] ASDIRECTED - Plan Plan:: 1. Blood pressure is controlled on lisinopril. Patient is not tachycardic. 2. Patient is ready to be transferred to swing bed.
[2016-11-04] MEDS: Clobetasol 0.05% Ointment 15 GM Tube TOP SCH ×2 (09:25→21:01)
[2016-11-04] MEDS: MIRABEGRON 50 MG PO SCH (09:27)
[2016-11-04] MEDS: Lisinopril 10 MG Tab PO SCH (09:28)
[2016-11-04] MEDS: Calcium Carbonate/Vitamin D3 1250 MG-200 Unit Tab PO SCH (09:28)
[2016-11-04] MEDS: Aspirin 81 MG Tab.EC PO SCH (09:28)
[2016-11-04] MEDS: Oxybutynin 5 MG Tab PO SCH ×3 (09:28→21:01)
[2016-11-04] MEDS: Multivitamin Tab PO SCH (09:29)
[2016-11-04] MEDS: Sertraline 100 MG Tab PO SCH (09:29)
[2016-11-04] MEDS: Enoxaparin 40 MG/0.4 ML Syringe SUBCUT SCH (09:29)
[2016-11-05] MEDS: traMADol 50 MG Tab PO SCH ×2 (01:33→07:52)
--- NOTE | 2016-11-05 08:04 | PCM.PN ---
- General Info Date of Service: 11/05/16 Admission Dx/Problem (Free Text): Patient without complaints. Back and pelvis feeling better. She states she was able to get up and walk a little bit yesterday. - Patient Data Vitals - Most Recent: Last Vital Signs Temp 97.3 F 11/05/16 01:30 Pulse 56 L 11/05/16 01:30 Resp 16 11/05/16 01:30 BP 140/63 11/05/16 01:30 Pulse Ox 90 L 11/05/16 01:30 Weight - Most Recent: 153 lb Lab Results Last 24 Hours: Laboratory Results - last 24 hr 11/04/16 11/05/16 Range/Units 19:04 07:13 POC Glucose 125 H 103 (80-116) mg/dL Med Orders - Current: Current Medications Aspirin (Halfprin) 81 mg PO DAILY [facility] Last Admin: 11/04/16 09:28 Dose: 81 mg Calcium Carbonate (Calcium Carbonate/Vitamin D 1250 Mg-200 Unit) 1 tab PO DAILY [facility] Last Admin: 11/04/16 09:28 Dose: 1 tab Clobetasol Propionate (Temovate 0.05% Oint) 0 gm TOP BID [facility] Last Admin: 11/04/16 21:01 Dose: 1 applic Enoxaparin Sodium (Lovenox) 40 mg SUBCUT DAILY [facility] Last Admin: 11/04/16 09:29 Dose: 40 mg Lisinopril (Prinivil) 10 mg PO DAILY [facility] Last Admin: 11/04/16 09:28 Dose: 10 mg Loperamide HCl (Imodium) 2 mg PO Q12H PRN PRN Reason: Diarrhea Morphine Sulfate (Morphine) 2 mg IVPUSH Q2H PRN PRN Reason: Pain Last Admin: 11/02/16 12:55 Dose: 2 mg Multivitamins/Minerals/Vitamin C (Tab-A-Bessie) 1 tab PO DAILY [facility] Last Admin: 11/04/16 09:29 Dose: 1 tab Mirabegron [ Myrbetriq] 50 MgPt Own 50 mg PO DAILY [facility] Last Admin: 11/04/16 09:27 Dose: 50 mg Ondansetron HCl (Zofran Odt) 4 mg PO ONETIME PRN PRN Reason: Nausea Last Admin: 11/01/16 11:08 Dose: 4 mg Oxybutynin Chloride (Oxybutynin) 5 mg PO TID [facility] Last Admin: 11/04/16 21:01 Dose: 5 mg Sertraline HCl (Zoloft) 100 mg PO DAILY [facility] Last Admin: 11/04/16 09:29 Dose: 100 mg Tramadol HCl (Ultram) 50 mg PO Q6H [facility] Last Admin: 11/05/16 07:52 Dose: 50 mg Discontinued Medications Hydrocodone Bitart/Acetaminophen ([place] 325-5 Mg) 1 tab PO ONETIME ONE Stop: 11/01/16 10:58 Last Admin: 11/01/16 11:09 Dose: 1 tab Atenolol (Tenormin) 50 mg PO DAILY [facility] Hydromorphone HCl (Dilaudid) 0.5 mg IVPUSH ONETIME ONE Stop: 11/01/16 12:03 Last Admin: 11/01/16 12:21 Dose: Not Given Sertraline HCl (Zoloft) 100 mg PO DAILY [facility] Sertraline HCl (Zoloft) Confirm Administered Dose 100 mg .ROUTE .STK-MED ONE Stop: 11/02/16 09:02 Last Admin: 11/02/16 10:11 Dose: Not Given Sertraline HCl (Zoloft) 100 mg PO DAILY [facility] Sertraline HCl (Zoloft) 100 mg PO ONETIME ONE Stop: 11/02/16 09:16 Last Admin: 11/02/16 10:11 Dose: 100 mg Sodium Chloride (Saline Flush) 10 ml FLUSH ASDIRECTED PRN PRN Reason: Keep Vein Open Last Admin: 11/02/16 12:54 Dose: 10 ml - Exam General: Alert, Oriented Lungs: Clear to Auscultation, Normal Respiratory Effort Cardiovascular: Regular Rate, Regular Rhythm, No Murmurs - Problem List & Annotations (1) Hypertension SNOMED Code(s): 17748510 Code(s): I10 - ESSENTIAL (PRIMARY) HYPERTENSION Status: Acute Priority: Low Current Visit: Yes (2) Diabetes type 2, controlled SNOMED Code(s): 40133897 Code(s): E11.9 - TYPE 2 DIABETES MELLITUS WITHOUT COMPLICATIONS Status: Acute Priority: Low Current Visit: Yes (3) Urinary incontinence SNOMED Code(s): 575689450 Code(s): R32 - UNSPECIFIED URINARY INCONTINENCE Status: Acute Current Visit: No (4) Palliative care status SNOMED Code(s): 572628847 Code(s): Z51.5 - ENCOUNTER FOR PALLIATIVE CARE Status: Acute Current Visit: Yes (5) Depression SNOMED Code(s): 48056509 Code(s): F32.9 - MAJOR DEPRESSIVE DISORDER, SINGLE EPISODE, UNSPECIFIED Status: Acute Current Visit: No (6) Pelvis fracture, right SNOMED Code(s): 23481294 Code(s): S32.9XXA - FRACTURE OF UNSP PARTS OF LUMBOSACRAL SPINE AND PELVIS, INIT Status: Acute Current Visit: Yes (7) Bradycardia SNOMED Code(s): 34129138 Code(s): R00.1 - BRADYCARDIA, UNSPECIFIED Status: Acute Current Visit: Yes (8) Hypoxia SNOMED Code(s): 951403186, 628494341 Code(s): R09.02 - HYPOXEMIA Status: Acute Current Visit: Yes (9) Chest wall pain SNOMED Code(s): 376597051 Code(s): R07.89 - OTHER CHEST PAIN Status: Acute Current Visit: Yes (10) Palliative care patient SNOMED Code(s): 365451132 Code(s): Z51.5 - ENCOUNTER FOR PALLIATIVE CARE Status: Acute Current Visit: Yes - Problem List Review Problem List Initiated/Reviewed/Updated: Yes - Plan Plan:: 1. X-ray report does not have a comment on the pelvis. X-rays notified. 2. Transfer to swing bed today for PT/OT.
[2016-11-05 08:06] VITALS: BP 133/60
[2016-11-05] MEDS: Enoxaparin 40 MG/0.4 ML Syringe SUBCUT SCH (08:08)
[2016-11-05] MEDS: Calcium Carbonate/Vitamin D3 1250 MG-200 Unit Tab PO SCH (08:08)
[2016-11-05] MEDS: Aspirin 81 MG Tab.EC PO SCH (08:08)
[2016-11-05] MEDS: Oxybutynin 5 MG Tab PO SCH (08:09)
[2016-11-05] MEDS: MIRABEGRON 50 MG PO SCH (08:09)
[2016-11-05] MEDS: Lisinopril 10 MG Tab PO SCH (08:09)
[2016-11-05] MEDS: Sertraline 100 MG Tab PO SCH (08:10)
[2016-11-05] MEDS: Multivitamin Tab PO SCH (08:10)
[2016-11-05] MEDS: Clobetasol 0.05% Ointment 15 GM Tube TOP SCH (08:10)
--- NOTE | 2016-11-05 08:17 | PCM.DCSUM1 ---
Discharge Summary - Hospital Course Free Text/Narrative:: Hospital course-patient was admitted for pain control. She was initially noted to have a low pulse of [address] and her beta jarod was stopped. Her heart rate went up to the mid 50s or higher. Her blood pressures elevated so lisinopril was started and the beta jarod was stopped. PT/OT or consult to. And the patient started to get up a little bit although she has some pain in her back. X-ray of the pelvis was read by myself and the ER doc felt that she had a ramus fractures very small. The radiologist read the hip x-ray but there is no comment on the pelvis at this time. That was brought up with the x-ray staff. They will look into it. Patient has history of diabetes but has done well for use in a regular diet. Her blood sugars were very good. She'll be transferred to swing bed today. Brief History: This is an 86-year-old female patient states she fell against a door frame 2 days ago. She states she has some pain yesterday in her right lower back and then today she couldn't get up. She is brought to the ER and found to have a pelvic fracture per ER doctor. He stated that hydrocodone did not touch her pain she had have Dilaudid. So she was admitted for pain control, PT/OT. She has a little bit of pain in her right leg when she was the lipase she has no strength loss or legs, or weakness. She has incontinence normally with no bowel or bladder dysfunction other than the normal. She denies dysuria, pyuria, hematuria. She's not been ill. - Discharge Data Discharge Date: 11/05/16 Discharge Disposition: DC/[facility] [place] [id number] Condition: Good - Discharge Diagnosis/Problem(s) (1) Hypertension SNOMED Code(s): 36809378 ICD Code: I10 - ESSENTIAL (PRIMARY) HYPERTENSION Status: Acute Priority: Low Current Visit: Yes (2) Diabetes type 2, controlled SNOMED Code(s): 17336300 ICD Code: E11.9 - TYPE 2 DIABETES MELLITUS WITHOUT COMPLICATIONS Status: Acute Priority: Low Current Visit: Yes (3) Urinary incontinence SNOMED Code(s): 158245775 ICD Code: R32 - UNSPECIFIED URINARY INCONTINENCE Status: Acute Current Visit: No (4) Palliative care status SNOMED Code(s): 535400173 ICD Code: Z51.5 - ENCOUNTER FOR PALLIATIVE CARE Status: Acute Current Visit: Yes (5) Depression SNOMED Code(s): 72141891 ICD Code: F32.9 - MAJOR DEPRESSIVE DISORDER, SINGLE EPISODE, UNSPECIFIED Status: Acute Current Visit: No (6) Pelvis fracture, right SNOMED Code(s): 87755130 ICD Code: S32.9XXA - FRACTURE OF UNSP PARTS OF LUMBOSACRAL SPINE AND PELVIS, INIT Status: Acute Current Visit: Yes (7) Bradycardia SNOMED Code(s): 37771268 ICD Code: R00.1 - BRADYCARDIA, UNSPECIFIED Status: Acute Current Visit: Yes (8) Hypoxia SNOMED Code(s): 188799650, 949970274 ICD Code: R09.02 - HYPOXEMIA Status: Acute Current Visit: Yes (9) Chest wall pain SNOMED Code(s): 553840773 ICD Code: R07.89 - OTHER CHEST PAIN Status: Acute Current Visit: Yes (10) Palliative care patient SNOMED Code(s): 969664342 ICD Code: Z51.5 - ENCOUNTER FOR PALLIATIVE CARE Status: Acute Current Visit: Yes - Patient Summary/Data Consults: Consultations 11/01/16 13:18 OT Evaluation and Treatment [CONS] Routine Please Evaluate and Treat. OT Reason for Consult: ADL's This query below is only for informational purposes and is not editable. Admission Diagnosis/Problem: Closed fracture of pelvis PT Evaluation and Treatment [CONS] Routine Please Evaluate and Treat. PT Reason for Consult: Ambulation This query below is only for informational purposes and is not editable. Admission Diagnosis/Problem: Closed fracture of pelvis - Patient Instructions Diet: Diabetic Diet Activity: Apply Ice Driving: Do Not Drive Showering/Bathing: May Shower Notify Provider of: Increased Pain Other/Special Instructions: 1. Transfer to swing bed for PT/OT. - Discharge Plan Home Medications: Home Meds Aspirin [Halfprin] 81 mg PO DAILY 11/01/16 [History] Calcium Carbonate/Vitamin D3 [Calcium 600-Vit D3 800 Tab] 1 each PO DAILY [History] Clobetasol [Temovate 0.05% Oint] 1 applic TOP BID 11/01/16 [History] Loperamide [Imodium] 2 mg PO Q12HR PRN 11/01/16 [History] Mirabegron [Myrbetriq] 50 mg PO DAILY 11/01/16 [History] Multivitamin [Multi-Day Vitamins] 1 each PO DAILY 11/01/16 [History] Oxybutynin 5 mg PO TID 11/01/16 [History] Sertraline [Zoloft] 100 mg PO DAILY 11/01/16 [History] Lisinopril [Prinivil] 10 mg PO DAILY #0 tablet 11/05/16 [Rx] traMADol [Ultram] 50 mg PO Q6H #0 tablet 11/05/16 [Rx] Forms: ED Department Discharge Referrals: Too Keenan MD [Primary Care Provider] - - Discharge Summary/Plan Comment DC Time >30 min.: No - Patient Data Vitals - Most Recent: Last Vital Signs Temp 97.6 F 11/05/16 08:00 Pulse 61 11/05/16 08:00 Resp 16 11/05/16 08:00 BP 133/60 11/05/16 08:09 Pulse Ox 92 L 11/05/16 08:00 Weight - Most Recent: 153 lb Lab Results - Last 24 hrs: Laboratory Results - last 24 hr 11/04/16 11/05/16 Range/Units 19:04 07:13 POC Glucose 125 H 103 (80-116) mg/dL Med Orders - Current: Current Medications Aspirin (Halfprin) 81 mg PO DAILY [facility] Last Admin: 11/05/16 08:08 Dose: 81 mg Calcium Carbonate (Calcium Carbonate/Vitamin D 1250 Mg-200 Unit) 1 tab PO DAILY [facility] Last Admin: 11/05/16 08:08 Dose: 1 tab Clobetasol Propionate (Temovate 0.05% Oint) 0 gm TOP BID [facility] Last Admin: 11/05/16 08:10 Dose: 1 applic Enoxaparin Sodium (Lovenox) 40 mg SUBCUT DAILY [facility] Last Admin: 11/05/16 08:08 Dose: 40 mg Lisinopril (Prinivil) 10 mg PO DAILY [facility] Last Admin: 11/05/16 08:09 Dose: 10 mg Loperamide HCl (Imodium) 2 mg PO Q12H PRN PRN Reason: Diarrhea Morphine Sulfate (Morphine) 2 mg IVPUSH Q2H PRN PRN Reason: Pain Last Admin: 11/02/16 12:55 Dose: 2 mg Multivitamins/Minerals/Vitamin C (Tab-A-Bessie) 1 tab PO DAILY [facility] Last Admin: 11/05/16 08:10 Dose: 1 tab Mirabegron [ Myrbetriq] 50 MgPt Own 50 mg PO DAILY [facility] Last Admin: 11/05/16 08:09 Dose: 50 mg Ondansetron HCl (Zofran Odt) 4 mg PO ONETIME PRN PRN Reason: Nausea Last Admin: 11/01/16 11:08 Dose: 4 mg Oxybutynin Chloride (Oxybutynin) 5 mg PO TID [facility] Last Admin: 11/05/16 08:09 Dose: 5 mg Sertraline HCl (Zoloft) 100 mg PO DAILY [facility] Last Admin: 11/05/16 08:10 Dose: 100 mg Tramadol HCl (Ultram) 50 mg PO Q6H [facility] Last Admin: 11/05/16 07:52 Dose: 50 mg Discontinued Medications Hydrocodone Bitart/Acetaminophen ([place] 325-5 Mg) 1 tab PO ONETIME ONE Stop: 11/01/16 10:58 Last Admin: 11/01/16 11:09 Dose: 1 tab Atenolol (Tenormin) 50 mg PO DAILY [facility] Hydromorphone HCl (Dilaudid) 0.5 mg IVPUSH ONETIME ONE Stop: 11/01/16 12:03 Last Admin: 11/01/16 12:21 Dose: Not Given Sertraline HCl (Zoloft) 100 mg PO DAILY [facility] Sertraline HCl (Zoloft) Confirm Administered Dose 100 mg .ROUTE .STK-MED ONE Stop: 11/02/16 09:02 Last Admin: 11/02/16 10:11 Dose: Not Given Sertraline HCl (Zoloft) 100 mg PO DAILY [facility] Sertraline HCl (Zoloft) 100 mg PO ONETIME ONE Stop: 11/02/16 09:16 Last Admin: 11/02/16 10:11 Dose: 100 mg Sodium Chloride (Saline Flush) 10 ml FLUSH ASDIRECTED PRN PRN Reason: Keep Vein Open Last Admin: 11/02/16 12:54 Dose: 10 ml *Q Meaningful Use (DIS) - VTE *Q VTE Criteria *Q: - Stroke *Q Stroke Criteria *Q: - AMI *Q AMI Criteria *Q:
== END 2016-11-05 08:20 | disposition swing bed (61) | DRG 536 ==
LOC: FB.ED 10:39 → FB.MS 12:31
PROVIDERS: ADMIT Family Medicine; ATTEND Family Medicine
DX: S32.591A Other specified fracture of right pubis, initial encounter for closed fracture (principal); I10 Essential (primary) hypertension; E11.9 Type 2 diabetes mellitus without complications; W01.198A Fall on same level from slipping, tripping and stumbling with subsequent striking against other object, initial encounter; Y92.009 Unspecified place in unspecified non-institutional (private) residence as the place of occurrence of the external cause; M25.551 Pain in right hip; M54.5 Low back pain; F32.9 Major depressive disorder, single episode, unspecified; R32 Unspecified urinary incontinence; Z79.82 Long term (current) use of aspirin; R00.1 Bradycardia, unspecified; R09.02 Hypoxemia; R07.89 Other chest pain
CPT/HCPCS: 36415; 71010; 73502-RT; 80053; 81001; 82962; 84484; 85025; 93005; 94150; 97110-GP; 97161-GP; 97166-GO; 97530-GO-KX; 97530-GP; 97535-GO; 97542-GO; 99284; 99285; A9270-GY; J1650; J2270; J7050

== ENCOUNTER 2016-11-05 08:20 | Inpatient (IN) | payer MEDICARE ==
[2016-11-05] MEDS ORDERED: Loperamide 2 MG Cap PO PRN (09:01)
[2016-11-05] MEDS ORDERED: traMADol 50 MG Tab PO SCH (09:15)
[2016-11-05] MEDS: traMADol 50 MG Tab PO SCH ×2 (13:59→19:37)
[2016-11-05] MEDS: Oxybutynin 5 MG Tab PO SCH ×2 (13:59→21:35)
[2016-11-05] MEDS: Clobetasol 0.05% Ointment 15 GM Tube TOP SCH ×2 (17:36→21:35)
[2016-11-05] MEDS ORDERED: Acetaminophen 325 MG Tab PO PRN ×2 (18:18→18:19)
[2016-11-05] MEDS ORDERED: oxyCODONE 5 MG Tab PO PRN (18:53)
[2016-11-06] MEDS: traMADol 50 MG Tab PO SCH ×4 (02:01→21:18)
[2016-11-06] MEDS: Lisinopril 10 MG Tab PO SCH (09:07)
[2016-11-06] MEDS: Oxybutynin 5 MG Tab PO SCH ×3 (09:11→21:19)
[2016-11-06] MEDS: Mirabegron 25 MG Tab Extended Release PO SCH (09:11)
[2016-11-06] MEDS: Aspirin 81 MG Tab.EC PO SCH (09:11)
[2016-11-06] MEDS: Multivitamin Tab PO SCH (09:11)
[2016-11-06] MEDS: Calcium Carbonate/Vitamin D3 1250 MG-200 Unit Tab PO SCH (09:11)
[2016-11-06] MEDS: Clobetasol 0.05% Ointment 15 GM Tube TOP SCH ×2 (09:13→21:20)
[2016-11-06] MEDS: Sertraline 100 MG Tab PO SCH (09:22)
[2016-11-06] MEDS ORDERED: Bisacodyl 5 MG Tab PO ONE (19:42)
[2016-11-07] MEDS: traMADol 50 MG Tab PO SCH ×4 (02:40→19:39)
[2016-11-07] MEDS: Mirabegron 25 MG Tab Extended Release PO SCH (09:03)
[2016-11-07] MEDS: Oxybutynin 5 MG Tab PO SCH ×3 (09:03→20:44)
[2016-11-07] MEDS: Calcium Carbonate/Vitamin D3 1250 MG-200 Unit Tab PO SCH (09:03)
[2016-11-07] MEDS: Aspirin 81 MG Tab.EC PO SCH (09:03)
[2016-11-07] MEDS: Lisinopril 10 MG Tab PO SCH (09:03)
[2016-11-07] MEDS: Multivitamin Tab PO SCH (09:03)
[2016-11-07] MEDS: Sertraline 100 MG Tab PO SCH (09:03)
[2016-11-07] MEDS: Clobetasol 0.05% Ointment 15 GM Tube TOP SCH ×2 (10:02→20:44)
[2016-11-07] MEDS: Naproxen 500 MG Tab PO SCH ×2 (10:02→20:43)
[2016-11-07] MEDS: Bisacodyl 10 MG Supp RECTAL PRN (15:54)
[2016-11-08] MEDS: traMADol 50 MG Tab PO SCH (02:23)
[2016-11-08] MEDS: Bisacodyl 10 MG Supp RECTAL PRN ×2 (06:22→06:25)
[2016-11-08] MEDS: Aspirin 81 MG Tab.EC PO SCH (08:47)
[2016-11-08] MEDS: Oxybutynin 5 MG Tab PO SCH ×3 (08:47→21:17)
[2016-11-08] MEDS: Mirabegron 25 MG Tab Extended Release PO SCH (08:47)
[2016-11-08] MEDS: Lisinopril 10 MG Tab PO SCH (08:47)
[2016-11-08] MEDS: Calcium Carbonate/Vitamin D3 1250 MG-200 Unit Tab PO SCH (08:47)
[2016-11-08] MEDS: Sertraline 100 MG Tab PO SCH (08:48)
[2016-11-08] MEDS: Multivitamin Tab PO SCH (08:48)
[2016-11-08] MEDS: Naproxen 500 MG Tab PO SCH ×2 (08:48→21:17)
[2016-11-08] MEDS: Clobetasol 0.05% Ointment 15 GM Tube TOP SCH ×2 (08:48→21:17)
[2016-11-09] MEDS: Mirabegron 25 MG Tab Extended Release PO SCH (08:18)
[2016-11-09] MEDS: Aspirin 81 MG Tab.EC PO SCH (08:18)
[2016-11-09] MEDS: Calcium Carbonate/Vitamin D3 1250 MG-200 Unit Tab PO SCH (08:18)
[2016-11-09] MEDS: Oxybutynin 5 MG Tab PO SCH ×3 (08:19→20:52)
[2016-11-09] MEDS: Lisinopril 10 MG Tab PO SCH (08:19)
[2016-11-09] MEDS: Clobetasol 0.05% Ointment 15 GM Tube TOP SCH ×2 (08:21→20:52)
[2016-11-09] MEDS: Multivitamin Tab PO SCH (08:21)
[2016-11-09] MEDS: Sertraline 100 MG Tab PO SCH (08:22)
[2016-11-09] MEDS: Naproxen 500 MG Tab PO SCH ×2 (08:23→20:52)
[2016-11-09] MEDS ORDERED: Celecoxib 200 MG Cap PO SCH (14:00)
[2016-11-09] MEDS ORDERED: Celecoxib 100 MG Cap PO SCH (15:00)
[2016-11-10] MEDS: Calcium Carbonate/Vitamin D3 1250 MG-200 Unit Tab PO SCH (09:51)
[2016-11-10] MEDS: Aspirin 81 MG Tab.EC PO SCH (09:51)
[2016-11-10] MEDS: Mirabegron 25 MG Tab Extended Release PO SCH (09:52)
[2016-11-10] MEDS: Lisinopril 10 MG Tab PO SCH (09:52)
[2016-11-10] MEDS: Oxybutynin 5 MG Tab PO SCH ×3 (09:52→21:00)
[2016-11-10] MEDS: Clobetasol 0.05% Ointment 15 GM Tube TOP SCH ×2 (09:53→20:41)
[2016-11-10] MEDS: Multivitamin Tab PO SCH (09:53)
[2016-11-10] MEDS: Sertraline 100 MG Tab PO SCH (09:53)
[2016-11-10] MEDS: Naproxen 500 MG Tab PO SCH ×2 (10:15→21:00)
[2016-11-10] MEDS: Celecoxib 200 MG Cap PO SCH (13:57)
[2016-11-11] MEDS: Naproxen 500 MG Tab PO SCH ×3 (07:39→20:41)
[2016-11-11] MEDS: Calcium Carbonate/Vitamin D3 1250 MG-200 Unit Tab PO SCH (09:16)
[2016-11-11] MEDS: Aspirin 81 MG Tab.EC PO SCH (09:16)
[2016-11-11] MEDS: Multivitamin Tab PO SCH (09:17)
[2016-11-11] MEDS: Mirabegron 25 MG Tab Extended Release PO SCH (09:17)
[2016-11-11] MEDS: Lisinopril 10 MG Tab PO SCH (09:17)
[2016-11-11] MEDS: Clobetasol 0.05% Ointment 15 GM Tube TOP SCH ×2 (09:17→20:00)
[2016-11-11] MEDS: Oxybutynin 5 MG Tab PO SCH ×3 (09:17→20:00)
[2016-11-11] MEDS: Sertraline 100 MG Tab PO SCH (09:18)
[2016-11-11] MEDS: Celecoxib 200 MG Cap PO SCH (13:31)
[2016-11-12] MEDS ORDERED: traMADol 50 MG Tab PO PRN (07:35)
--- NOTE | 2016-11-12 07:37 | PCM.PN ---
- General Info Date of Service: 11/12/16 Admission Dx/Problem (Free Text): Patient states she's having a little bit of pain in her hip again. She says the pain meds aren't working is like they were before. She denies chest pain, shortness of breath, fevers, chills. - Patient Data Vitals - Most Recent: Last Vital Signs Temp 97.9 F 11/11/16 09:05 Pulse 72 11/11/16 09:05 Resp 20 11/11/16 09:05 BP 144/77 H 11/11/16 09:17 Pulse Ox 92 L 11/11/16 09:05 Weight - Most Recent: 153 lb Med Orders - Current: Current Medications Aspirin (Halfprin) 81 mg PO DAILY [facility] Last Admin: 11/11/16 09:16 Dose: 81 mg Bisacodyl (Dulcolax) 10 mg RECTAL DAILY PRN PRN Reason: Constipation Last Admin: 11/08/16 06:25 Dose: 10 mg Calcium Carbonate (Calcium Carbonate/Vitamin D 1250 Mg-200 Unit) 1 tab PO DAILY [facility] Last Admin: 11/11/16 09:16 Dose: 1 tab Celecoxib (Celebrex) 200 mg PO DAILY@1400 [facility] Last Admin: 11/11/16 13:31 Dose: 200 mg Clobetasol Propionate (Temovate 0.05% Oint) 0 gm TOP BID [facility] Last Admin: 11/11/16 20:00 Dose: 1 applic Lisinopril (Prinivil) 10 mg PO DAILY [facility] Last Admin: 11/11/16 09:17 Dose: 10 mg Loperamide HCl (Imodium) 2 mg PO Q12H PRN PRN Reason: Diarrhea Mirabegron (Myrbetriq) 50 mg PO DAILY [facility] Last Admin: 11/11/16 09:17 Dose: 50 mg Multivitamins/Minerals/Vitamin C (Tab-A-Bessie) 1 tab PO DAILY [facility] Last Admin: 11/11/16 09:17 Dose: 1 tab Naproxen (Naprosyn) 500 mg PO Q12H [facility] Last Admin: 11/11/16 20:41 Dose: 500 mg Oxybutynin Chloride (Oxybutynin) 5 mg PO TID [facility] Last Admin: 11/11/16 20:00 Dose: 5 mg Sertraline HCl (Zoloft) 100 mg PO DAILY [facility] Last Admin: 11/11/16 09:18 Dose: 100 mg Discontinued Medications Acetaminophen (Tylenol) 325 mg PO Q4H PRN PRN Reason: Pain Acetaminophen (Tylenol) 650 mg PO Q4H PRN PRN Reason: Pain Bisacodyl (Dulcolax) 5 mg PO ONETIME ONE Stop: 11/06/16 19:43 Last Admin: 11/06/16 21:18 Dose: 5 mg Celecoxib (Celebrex) 200 mg PO DAILY@1400 [facility] Last Admin: 11/09/16 15:19 Dose: Not Given Celecoxib (Celebrex) 200 mg PO DAILY@1400 [facility] Last Admin: 11/09/16 14:51 Dose: 200 mg Oxycodone HCl (Oxycodone) 5 mg PO Q12H PRN PRN Reason: Pain Last Admin: 11/05/16 23:30 Dose: 5 mg Tramadol HCl (Ultram) 50 mg PO Q6H [facility] Last Admin: 11/06/16 14:06 Dose: 50 mg Tramadol HCl (Ultram) 25 mg PO Q6H [facility] Last Admin: 11/08/16 02:23 Dose: Not Given - Exam General: Alert, Oriented Neck: Supple Lungs: Clear to Auscultation, Normal Respiratory Effort. No: Crackles, Rales, Rhonchi, Rub Cardiovascular: Regular Rate, Regular Rhythm. No: No Murmurs - Problem List & Annotations (1) Pelvis fracture, right SNOMED Code(s): 18692402 Code(s): S32.9XXA - FRACTURE OF UNSP PARTS OF LUMBOSACRAL SPINE AND PELVIS, INIT Status: Acute Current Visit: No - Problem List Review Problem List Initiated/Reviewed/Updated: Yes - My Orders Last 24 Hours: My Active Orders 11/12/16 07:35 traMADol [Ultram] 50 mg PO Q6H PRN - Plan Plan:: 1. Tramadol 50 mg every 6 hours when necessary for pain. 2. Continue the Celebrex. 3. Continue PT/OT.
[2016-11-12] MEDS: Lisinopril 10 MG Tab PO SCH (08:10)
[2016-11-12] MEDS: Oxybutynin 5 MG Tab PO SCH ×3 (08:10→20:15)
[2016-11-12] MEDS: Aspirin 81 MG Tab.EC PO SCH (08:10)
[2016-11-12] MEDS: Mirabegron 25 MG Tab Extended Release PO SCH (08:10)
[2016-11-12] MEDS: Calcium Carbonate/Vitamin D3 1250 MG-200 Unit Tab PO SCH (08:10)
[2016-11-12] MEDS: Sertraline 100 MG Tab PO SCH (08:10)
[2016-11-12] MEDS: Multivitamin Tab PO SCH (08:10)
[2016-11-12] MEDS: Clobetasol 0.05% Ointment 15 GM Tube TOP SCH ×2 (08:39→20:12)
[2016-11-12] MEDS: Naproxen 500 MG Tab PO SCH ×2 (08:39→20:16)
[2016-11-12] MEDS: Celecoxib 200 MG Cap PO SCH (14:43)
[2016-11-13] MEDS: Calcium Carbonate/Vitamin D3 1250 MG-200 Unit Tab PO SCH (08:11)
[2016-11-13] MEDS: Aspirin 81 MG Tab.EC PO SCH (08:11)
[2016-11-13] MEDS: Lisinopril 10 MG Tab PO SCH (08:12)
[2016-11-13] MEDS: Oxybutynin 5 MG Tab PO SCH ×3 (08:12→21:19)
[2016-11-13] MEDS: Mirabegron 25 MG Tab Extended Release PO SCH (08:12)
[2016-11-13] MEDS: Multivitamin Tab PO SCH (08:18)
[2016-11-13] MEDS: Sertraline 100 MG Tab PO SCH (08:26)
[2016-11-13] MEDS: Clobetasol 0.05% Ointment 15 GM Tube TOP SCH ×2 (08:26→21:30)
[2016-11-13] MEDS: Naproxen 500 MG Tab PO SCH ×2 (09:18→21:19)
[2016-11-13] MEDS: Celecoxib 200 MG Cap PO SCH (13:01)
[2016-11-14] MEDS: Clobetasol 0.05% Ointment 15 GM Tube TOP SCH ×2 (08:58→20:37)
[2016-11-14] MEDS: Mirabegron 25 MG Tab Extended Release PO SCH (08:58)
[2016-11-14] MEDS: Multivitamin Tab PO SCH (08:58)
[2016-11-14] MEDS: Calcium Carbonate/Vitamin D3 1250 MG-200 Unit Tab PO SCH (08:58)
[2016-11-14] MEDS: Sertraline 100 MG Tab PO SCH (08:58)
[2016-11-14] MEDS: Lisinopril 10 MG Tab PO SCH (08:59)
[2016-11-14] MEDS: Oxybutynin 5 MG Tab PO SCH ×3 (08:59→20:37)
[2016-11-14] MEDS: Naproxen 500 MG Tab PO SCH ×2 (08:59→20:37)
[2016-11-14] MEDS: Aspirin 81 MG Tab.EC PO SCH (08:59)
[2016-11-14] MEDS: Celecoxib 200 MG Cap PO SCH (13:05)
[2016-11-15] MEDS: Mirabegron 25 MG Tab Extended Release PO SCH (08:26)
[2016-11-15] MEDS: Calcium Carbonate/Vitamin D3 1250 MG-200 Unit Tab PO SCH (08:26)
[2016-11-15] MEDS: Lisinopril 10 MG Tab PO SCH (08:27)
[2016-11-15] MEDS: Aspirin 81 MG Tab.EC PO SCH (08:27)
[2016-11-15] MEDS: Multivitamin Tab PO SCH (08:27)
[2016-11-15] MEDS: Sertraline 100 MG Tab PO SCH (08:28)
[2016-11-15] MEDS: Oxybutynin 5 MG Tab PO SCH ×3 (08:28→21:00)
[2016-11-15] MEDS: Clobetasol 0.05% Ointment 15 GM Tube TOP SCH ×2 (08:28→21:00)
[2016-11-15] MEDS: Naproxen 500 MG Tab PO SCH ×2 (08:29→21:00)
[2016-11-15] MEDS ORDERED: Hydrochlorothiazide 25 MG Tab ONE (11:00)
[2016-11-15] MEDS ORDERED: Lisinopril 10 MG Tab ONE (11:00)
[2016-11-15] MEDS ORDERED: Hydrochlorothiazide 25 MG Tab PO ONE (11:01)
[2016-11-15] MEDS ORDERED: Lisinopril 10 MG Tab PO ONE (11:01)
[2016-11-15] MEDS: Hydrochlorothiazide/Lisinopril 25-20 MG Tab PO SCH (11:28)
[2016-11-15] MEDS: Celecoxib 200 MG Cap PO SCH (13:42)
[2016-11-16] MEDS: Sertraline 100 MG Tab PO SCH (08:10)
[2016-11-16] MEDS: Calcium Carbonate/Vitamin D3 1250 MG-200 Unit Tab PO SCH (08:10)
[2016-11-16] MEDS: Clobetasol 0.05% Ointment 15 GM Tube TOP SCH ×2 (08:10→21:10)
[2016-11-16] MEDS: Mirabegron 25 MG Tab Extended Release PO SCH (08:10)
[2016-11-16] MEDS: Multivitamin Tab PO SCH (08:11)
[2016-11-16] MEDS: Oxybutynin 5 MG Tab PO SCH ×3 (08:11→21:10)
[2016-11-16] MEDS: Aspirin 81 MG Tab.EC PO SCH (08:11)
[2016-11-16] MEDS: Hydrochlorothiazide/Lisinopril 25-20 MG Tab PO SCH (08:13)
[2016-11-16] MEDS: Naproxen 500 MG Tab PO SCH ×2 (08:15→21:10)
[2016-11-16] MEDS: Celecoxib 200 MG Cap PO SCH (13:26)
[2016-11-17] MEDS: Calcium Carbonate/Vitamin D3 1250 MG-200 Unit Tab PO SCH (09:24)
[2016-11-17] MEDS: Oxybutynin 5 MG Tab PO SCH ×3 (09:24→21:00)
[2016-11-17] MEDS: Mirabegron 25 MG Tab Extended Release PO SCH (09:24)
[2016-11-17] MEDS: Aspirin 81 MG Tab.EC PO SCH (09:24)
[2016-11-17] MEDS: Hydrochlorothiazide/Lisinopril 25-20 MG Tab PO SCH (09:24)
[2016-11-17] MEDS: Naproxen 500 MG Tab PO SCH ×2 (09:25→21:00)
[2016-11-17] MEDS: Sertraline 100 MG Tab PO SCH (09:25)
[2016-11-17] MEDS: Multivitamin Tab PO SCH (09:25)
[2016-11-17] MEDS: Clobetasol 0.05% Ointment 15 GM Tube TOP SCH ×2 (09:25→21:00)
[2016-11-17] MEDS: Celecoxib 200 MG Cap PO SCH (14:18)
[2016-11-18] MEDS: Aspirin 81 MG Tab.EC PO SCH (08:08)
[2016-11-18] MEDS: Hydrochlorothiazide/Lisinopril 25-20 MG Tab PO SCH (08:08)
[2016-11-18] MEDS: Calcium Carbonate/Vitamin D3 1250 MG-200 Unit Tab PO SCH (08:08)
[2016-11-18] MEDS: Mirabegron 25 MG Tab Extended Release PO SCH (08:08)
[2016-11-18] MEDS: Clobetasol 0.05% Ointment 15 GM Tube TOP SCH ×2 (08:09→20:14)
[2016-11-18] MEDS: Oxybutynin 5 MG Tab PO SCH ×3 (08:09→20:15)
[2016-11-18] MEDS: Sertraline 100 MG Tab PO SCH (08:09)
[2016-11-18] MEDS: Multivitamin Tab PO SCH (08:09)
[2016-11-18] MEDS: Naproxen 500 MG Tab PO SCH ×2 (08:21→20:15)
[2016-11-18] MEDS: Celecoxib 200 MG Cap PO SCH (16:00)
[2016-11-19] MEDS: Naproxen 500 MG Tab PO SCH ×3 (07:57→20:31)
[2016-11-19] MEDS: Aspirin 81 MG Tab.EC PO SCH (09:12)
[2016-11-19] MEDS: Hydrochlorothiazide/Lisinopril 25-20 MG Tab PO SCH (09:12)
[2016-11-19] MEDS: Calcium Carbonate/Vitamin D3 1250 MG-200 Unit Tab PO SCH (09:12)
[2016-11-19] MEDS: Mirabegron 25 MG Tab Extended Release PO SCH (09:13)
[2016-11-19] MEDS: Sertraline 100 MG Tab PO SCH (09:13)
[2016-11-19] MEDS: Oxybutynin 5 MG Tab PO SCH ×3 (09:13→20:31)
[2016-11-19] MEDS: Multivitamin Tab PO SCH (09:13)
[2016-11-19] MEDS: Clobetasol 0.05% Ointment 15 GM Tube TOP SCH ×2 (09:13→20:31)
[2016-11-19] MEDS: Celecoxib 200 MG Cap PO SCH (13:08)
[2016-11-20] MEDS: Oxybutynin 5 MG Tab PO SCH ×4 (08:13→20:48)
[2016-11-20] MEDS: Mirabegron 25 MG Tab Extended Release PO SCH ×2 (08:14→08:50)
[2016-11-20] MEDS ORDERED: Mirabegron 25 MG Tab Extended Release PO ONE (08:30)
[2016-11-20] MEDS ORDERED: Oxybutynin 5 MG Tab PO ONE (08:30)
[2016-11-20] MEDS: Calcium Carbonate/Vitamin D3 1250 MG-200 Unit Tab PO SCH (08:49)
[2016-11-20] MEDS: Aspirin 81 MG Tab.EC PO SCH (08:49)
[2016-11-20] MEDS: Hydrochlorothiazide/Lisinopril 25-20 MG Tab PO SCH (08:50)
[2016-11-20] MEDS: Multivitamin Tab PO SCH (08:50)
[2016-11-20] MEDS: Sertraline 100 MG Tab PO SCH (08:51)
[2016-11-20] MEDS: Naproxen 500 MG Tab PO SCH ×2 (08:52→20:41)
[2016-11-20] MEDS: Clobetasol 0.05% Ointment 15 GM Tube TOP SCH ×2 (10:51→20:39)
[2016-11-20] MEDS: Trolamine Salicylate/Aloe Vera 10% Crm 85 GM Tube TOP PRN ×2 (11:33→20:41)
[2016-11-20] MEDS: Celecoxib 200 MG Cap PO SCH (14:50)
[2016-11-21] MEDS: Naproxen 500 MG Tab PO SCH (05:09)
--- NOTE | 2016-11-21 08:21 | PCM.PN ---
- General Info Date of Service: 11/21/16 Admission Dx/Problem (Free Text): Patient states she has quite a bit of pain periods better when she gets up and walks. That's in her right hip. No other concerns. - Patient Data Vitals - Most Recent: Last Vital Signs Temp 97.6 F 11/20/16 07:43 Pulse 82 11/20/16 07:43 Resp 16 11/20/16 07:43 BP 141/76 H 11/20/16 08:50 Pulse Ox 92 L 11/20/16 07:43 Weight - Most Recent: 147 lb 4.8 oz I&O - Last 24 Hours: Intake & Output 11/20/16 11/21/16 11/21/16 22:59 06:59 14:59 Intake Total 250 Balance 250 Med Orders - Current: Current Medications Aspirin (Halfprin) 81 mg PO DAILY [facility] Last Admin: 11/20/16 08:49 Dose: 81 mg Bisacodyl (Dulcolax) 10 mg RECTAL DAILY PRN PRN Reason: Constipation Last Admin: 11/08/16 06:25 Dose: 10 mg Calcium Carbonate (Calcium Carbonate/Vitamin D 1250 Mg-200 Unit) 1 tab PO DAILY [facility] Last Admin: 11/20/16 08:49 Dose: 1 tab Celecoxib (Celebrex) 200 mg PO DAILY@1200 [facility] Clobetasol Propionate (Temovate 0.05% Oint) 0 gm TOP BID [facility] Last Admin: 11/20/16 20:39 Dose: 1 applic Lisinopril/HCTZ (Lisinopril-Hctz 20-25 Mg) 1 tab PO DAILY [facility] Last Admin: 11/20/16 08:50 Dose: 1 tab Loperamide HCl (Imodium) 2 mg PO Q12H PRN PRN Reason: Diarrhea Mirabegron (Myrbetriq) 50 mg PO DAILY [facility] Last Admin: 11/20/16 08:50 Dose: Not Given Multivitamins/Minerals/Vitamin C (Tab-A-Bessie) 1 tab PO DAILY [facility] Last Admin: 11/20/16 08:50 Dose: 1 tab Naproxen (Naprosyn) 500 mg PO Q12H [facility] Last Admin: 11/21/16 05:09 Dose: 500 mg Oxybutynin Chloride (Oxybutynin) 5 mg PO TID [facility] Last Admin: 11/20/16 20:48 Dose: 5 mg Sertraline HCl (Zoloft) 100 mg PO DAILY [facility] Last Admin: 11/20/16 08:51 Dose: 100 mg Trolamine Salicylate (Aspercreme 10%) 0 gm TOP Q4H PRN PRN Reason: Pain Last Admin: 11/20/16 20:41 Dose: 1 applic Discontinued Medications Acetaminophen (Tylenol) 325 mg PO Q4H PRN PRN Reason: Pain Acetaminophen (Tylenol) 650 mg PO Q4H PRN PRN Reason: Pain Bisacodyl (Dulcolax) 5 mg PO ONETIME ONE Stop: 11/06/16 19:43 Last Admin: 11/06/16 21:18 Dose: 5 mg Celecoxib (Celebrex) 200 mg PO DAILY@1400 [facility] Last Admin: 11/09/16 15:19 Dose: Not Given Celecoxib (Celebrex) 200 mg PO DAILY@1400 [facility] Last Admin: 11/09/16 14:51 Dose: 200 mg Celecoxib (Celebrex) 200 mg PO DAILY@1400 [facility] Stop: 11/20/16 16:00 Last Admin: 11/20/16 14:50 Dose: 200 mg Hydrochlorothiazide (Hydrochlorothiazide) Confirm Administered Dose 25 mg .ROUTE .STK-MED ONE Stop: 11/15/16 11:01 Last Admin: 11/15/16 11:24 Dose: Not Given Hydrochlorothiazide (Hydrochlorothiazide) 25 mg PO ONETIME ONE Stop: 11/15/16 11:02 Last Admin: 11/15/16 11:28 Dose: 25 mg Lisinopril (Prinivil) 10 mg PO DAILY [facility] Last Admin: 11/15/16 08:27 Dose: 10 mg Lisinopril (Prinivil) Confirm Administered Dose 10 mg .ROUTE .STK-MED ONE Stop: 11/15/16 11:01 Last Admin: 11/15/16 11:24 Dose: Not Given Lisinopril (Prinivil) 10 mg PO ONETIME ONE Stop: 11/15/16 11:02 Last Admin: 11/15/16 11:28 Dose: 10 mg Mirabegron (Myrbetriq) 50 mg PO ONETIME ONE Stop: 11/20/16 08:31 Last Admin: 11/20/16 08:48 Dose: 50 mg Naproxen (Naprosyn) 500 mg PO Q12H [facility] Last Admin: 11/20/16 08:52 Dose: 500 mg Oxybutynin Chloride (Oxybutynin) 5 mg PO ONETIME ONE Stop: 11/20/16 08:31 Last Admin: 11/20/16 08:48 Dose: 5 mg Oxycodone HCl (Oxycodone) 5 mg PO Q12H PRN PRN Reason: Pain Last Admin: 11/05/16 23:30 Dose: 5 mg Tramadol HCl (Ultram) 50 mg PO Q6H [facility] Last Admin: 11/06/16 14:06 Dose: 50 mg Tramadol HCl (Ultram) 25 mg PO Q6H [facility] Last Admin: 11/08/16 02:23 Dose: Not Given Tramadol HCl (Ultram) 50 mg PO Q6H PRN PRN Reason: Pain - Exam General: Alert, Oriented, Cooperative Lungs: Normal Respiratory Effort Extremities: No Pedal Edema - Problem List & Annotations (1) Pelvis fracture, right SNOMED Code(s): 85430665 Code(s): S32.9XXA - FRACTURE OF UNSP PARTS OF LUMBOSACRAL SPINE AND PELVIS, INIT Status: Acute Current Visit: No - Problem List Review Problem List Initiated/Reviewed/Updated: Yes - Plan Plan:: 1. Discharge to home. 2. Discuss pain management. Patient got very confused in any narcotics. So I told her it was better to avoid them. 3. PT/OT/home health.
--- NOTE | 2016-11-21 08:26 | PCM.DCSUM1 ---
Discharge Summary - Hospital Course Free Text/Narrative:: Hospital course-patient did well with physical therapy and occupational therapy. She will problem with controlling her pain. Return we gave her any narcotic including tramadol she got confused. So she was given Celebrex and Tylenol for pain. The patient achieved all her goals for PT/OT. She will be discharged to [facility] with home health, PT, OT. Brief History: 86-year-old female patient with broken pelvis from a fall. Was admitted acutely and then transferred to swing bed. - Discharge Data Discharge Date: 11/21/16 Discharge Disposition: Home, W Home Health Agency 06 Condition: Good - Discharge Diagnosis/Problem(s) (1) Pelvis fracture, right SNOMED Code(s): 80680952 ICD Code: S32.9XXA - FRACTURE OF UNSP PARTS OF LUMBOSACRAL SPINE AND PELVIS, INIT Status: Acute Current Visit: No - Patient Summary/Data Consults: Consultations 11/05/16 08:58 OT Evaluation and Treatment [CONS] Routine Please Evaluate and Treat. OT Reason for Consult: ADL's This query below is only for informational purposes and is not editable. PT Evaluation and Treatment [CONS] Routine Please Evaluate and Treat. PT Reason for Consult: Ambulation This query below is only for informational purposes and is not editable. - Patient Instructions Diet: Diabetic Diet Activity: As Tolerated Driving: Do Not Drive Showering/Bathing: May Shower Notify Provider of: Increased Pain Other/Special Instructions: 1. Recheck with Dr. Keenan in 7-14 days. 2. Home health/PT/OT regards to medication management, blood pressure monitoring, home safety, exercise, pain control. - Discharge Plan Prescriptions/Med Rec: Celecoxib [CeleBREX] 200 mg PO DAILY@1200 #30 cap Hydrochlorothiazide/Lisinopril [Lisinopril-HCTZ 20-25 MG] 1 tab PO DAILY #30 tablet Home Medications: Home Meds Aspirin [Halfprin] 81 mg PO DAILY 11/01/16 [History] Calcium Carbonate/Vitamin D3 [Calcium 600-Vit D3 800 Tab] 1 each PO DAILY [History] Clobetasol [Temovate 0.05% Oint] 1 applic TOP BID 11/01/16 [History] Loperamide [Imodium] 2 mg PO Q12HR PRN 11/01/16 [History] Mirabegron [Myrbetriq] 50 mg PO DAILY 11/01/16 [History] Multivitamin [Multi-Day Vitamins] 1 each PO DAILY 11/01/16 [History] Oxybutynin 5 mg PO TID 11/01/16 [History] Sertraline [Zoloft] 100 mg PO DAILY 11/01/16 [History] Celecoxib [CeleBREX] 200 mg PO DAILY@1200 #30 cap 11/21/16 [Rx] Hydrochlorothiazide/Lisinopril [Lisinopril-HCTZ 20-25 MG] 1 tab PO DAILY #30 tablet 11/21/16 [Rx] Patient Handouts: Type 2 Diabetes Mellitus, Adult, Hypertension, [id number], Fall Prevention in Hospitals, Adult - Discharge Summary/Plan Comment DC Time >30 min.: No - Patient Data Vitals - Most Recent: Last Vital Signs Temp 97.6 F 11/20/16 07:43 Pulse 82 11/20/16 07:43 Resp 16 11/20/16 07:43 BP 141/76 H 11/20/16 08:50 Pulse Ox 92 L 11/20/16 07:43 Weight - Most Recent: 147 lb 4.8 oz I&O - Last 24 hours: Intake & Output 11/20/16 11/21/16 11/21/16 22:59 06:59 14:59 Intake Total 250 Balance 250 Med Orders - Current: Current Medications Aspirin (Halfprin) 81 mg PO DAILY [facility] Last Admin: 11/20/16 08:49 Dose: 81 mg Bisacodyl (Dulcolax) 10 mg RECTAL DAILY PRN PRN Reason: Constipation Last Admin: 11/08/16 06:25 Dose: 10 mg Calcium Carbonate (Calcium Carbonate/Vitamin D 1250 Mg-200 Unit) 1 tab PO DAILY [facility] Last Admin: 11/20/16 08:49 Dose: 1 tab Celecoxib (Celebrex) 200 mg PO DAILY@1200 [facility] Clobetasol Propionate (Temovate 0.05% Oint) 0 gm TOP BID [facility] Last Admin: 11/20/16 20:39 Dose: 1 applic Lisinopril/HCTZ (Lisinopril-Hctz 20-25 Mg) 1 tab PO DAILY [facility] Last Admin: 11/20/16 08:50 Dose: 1 tab Loperamide HCl (Imodium) 2 mg PO Q12H PRN PRN Reason: Diarrhea Mirabegron (Myrbetriq) 50 mg PO DAILY [facility] Last Admin: 11/20/16 08:50 Dose: Not Given Multivitamins/Minerals/Vitamin C (Tab-A-Bessie) 1 tab PO DAILY [facility] Last Admin: 11/20/16 08:50 Dose: 1 tab Naproxen (Naprosyn) 500 mg PO Q12H [facility] Last Admin: 11/21/16 05:09 Dose: 500 mg Oxybutynin Chloride (Oxybutynin) 5 mg PO TID [facility] Last Admin: 11/20/16 20:48 Dose: 5 mg Sertraline HCl (Zoloft) 100 mg PO DAILY [facility] Last Admin: 11/20/16 08:51 Dose: 100 mg Trolamine Salicylate (Aspercreme 10%) 0 gm TOP Q4H PRN PRN Reason: Pain Last Admin: 11/20/16 20:41 Dose: 1 applic Discontinued Medications Acetaminophen (Tylenol) 325 mg PO Q4H PRN PRN Reason: Pain Acetaminophen (Tylenol) 650 mg PO Q4H PRN PRN Reason: Pain Bisacodyl (Dulcolax) 5 mg PO ONETIME ONE Stop: 11/06/16 19:43 Last Admin: 11/06/16 21:18 Dose: 5 mg Celecoxib (Celebrex) 200 mg PO DAILY@1400 [facility] Last Admin: 11/09/16 15:19 Dose: Not Given Celecoxib (Celebrex) 200 mg PO DAILY@1400 [facility] Last Admin: 11/09/16 14:51 Dose: 200 mg Celecoxib (Celebrex) 200 mg PO DAILY@1400 [facility] Stop: 11/20/16 16:00 Last Admin: 11/20/16 14:50 Dose: 200 mg Hydrochlorothiazide (Hydrochlorothiazide) Confirm Administered Dose 25 mg .ROUTE .STK-MED ONE Stop: 11/15/16 11:01 Last Admin: 11/15/16 11:24 Dose: Not Given Hydrochlorothiazide (Hydrochlorothiazide) 25 mg PO ONETIME ONE Stop: 11/15/16 11:02 Last Admin: 11/15/16 11:28 Dose: 25 mg Lisinopril (Prinivil) 10 mg PO DAILY [facility] Last Admin: 11/15/16 08:27 Dose: 10 mg Lisinopril (Prinivil) Confirm Administered Dose 10 mg .ROUTE .STK-MED ONE Stop: 11/15/16 11:01 Last Admin: 11/15/16 11:24 Dose: Not Given Lisinopril (Prinivil) 10 mg PO ONETIME ONE Stop: 11/15/16 11:02 Last Admin: 11/15/16 11:28 Dose: 10 mg Mirabegron (Myrbetriq) 50 mg PO ONETIME ONE Stop: 11/20/16 08:31 Last Admin: 11/20/16 08:48 Dose: 50 mg Naproxen (Naprosyn) 500 mg PO Q12H [facility] Last Admin: 11/20/16 08:52 Dose: 500 mg Oxybutynin Chloride (Oxybutynin) 5 mg PO ONETIME ONE Stop: 11/20/16 08:31 Last Admin: 11/20/16 08:48 Dose: 5 mg Oxycodone HCl (Oxycodone) 5 mg PO Q12H PRN PRN Reason: Pain Last Admin: 11/05/16 23:30 Dose: 5 mg Tramadol HCl (Ultram) 50 mg PO Q6H [facility] Last Admin: 11/06/16 14:06 Dose: 50 mg Tramadol HCl (Ultram) 25 mg PO Q6H [facility] Last Admin: 11/08/16 02:23 Dose: Not Given Tramadol HCl (Ultram) 50 mg PO Q6H PRN PRN Reason: Pain *Q Meaningful Use (DIS) - VTE *Q VTE Criteria *Q: - Stroke *Q Stroke Criteria *Q: - AMI *Q AMI Criteria *Q:
[2016-11-21] MEDS: Hydrochlorothiazide/Lisinopril 25-20 MG Tab PO SCH (08:58)
[2016-11-21] MEDS: Aspirin 81 MG Tab.EC PO SCH (08:58)
[2016-11-21] MEDS: Sertraline 100 MG Tab PO SCH (08:59)
[2016-11-21] MEDS: Multivitamin Tab PO SCH (09:00)
[2016-11-21] MEDS: Mirabegron 25 MG Tab Extended Release PO SCH (09:00)
[2016-11-21] MEDS: Oxybutynin 5 MG Tab PO SCH (09:00)
[2016-11-21] MEDS: Calcium Carbonate/Vitamin D3 1250 MG-200 Unit Tab PO SCH (09:00)
[2016-11-21] MEDS: Clobetasol 0.05% Ointment 15 GM Tube TOP SCH (09:01)
[2016-11-21 09:22] VITALS: BP 188/84
[2016-11-21] MEDS ORDERED: Celecoxib 200 MG Cap PO SCH (12:00)
== END 2016-11-21 13:25 | disposition home health service (06) | DRG 561 ==
LOC: FB.MS 08:20
PROVIDERS: ADMIT Family Medicine; ATTEND Family Medicine
DX: S32.591D Other specified fracture of right pubis, subsequent encounter for fracture with routine healing (principal); W01.198D Fall on same level from slipping, tripping and stumbling with subsequent striking against other object, subsequent encounter; Z51.5 Encounter for palliative care; I10 Essential (primary) hypertension; R32 Unspecified urinary incontinence; F32.9 Major depressive disorder, single episode, unspecified; R00.1 Bradycardia, unspecified; Z79.82 Long term (current) use of aspirin; Y92.009 Unspecified place in unspecified non-institutional (private) residence as the place of occurrence of the external cause
CPT/HCPCS: 97110-GO; 97110-GP; 97116-GP; 97530-GO; 97530-GO-KX; 97530-GP; 97535-GO; A9270-GY

== ENCOUNTER 2016-11-24 10:27 | Emergency (ER) | payer MEDICARE ==
[2016-11-24] MEDS ORDERED: Acetaminophen 325 MG Tab PO ONE (10:54)
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
[2016-11-24] MEDS ORDERED: traMADol 50 MG Tab PO ONE (11:25)
[2016-11-24] MEDS ORDERED: Potassium Chloride 10 MEQ Tab.ER PO ONE (11:30)
[2016-11-24] MEDS ORDERED: Nitroglycerin 0.4 MG Tab.SL SL PRN (11:38)
[2016-11-24] MEDS ORDERED: Sodium Chloride 0.9% 10 ML Syringe FLUSH PRN ×2 (12:00→12:30)
[2016-11-24 12:01] VITALS: BP 106/53
[2016-11-24] MEDS ORDERED: Aspirin 81 MG Tab.Chew PO ONE (12:12)
== END 2016-11-24 13:24 ==
LOC: FB.ED 10:27
DX: I21.4 Non-ST elevation (NSTEMI) myocardial infarction (principal); E87.6 Hypokalemia; E11.9 Type 2 diabetes mellitus without complications; F32.9 Major depressive disorder, single episode, unspecified; I10 Essential (primary) hypertension; Z79.82 Long term (current) use of aspirin; Z88.8 Allergy status to other drugs, medicaments and biological substances; Z79.899 Other long term (current) drug therapy; Z90.49 Acquired absence of other specified parts of digestive tract; Z90.89 Acquired absence of other organs; Z87.891 Personal history of nicotine dependence
CPT/HCPCS: 36415; 80048; 83735; 84484; 85027; 93005; 99285; A9270; J7050

== ENCOUNTER 2017-04-24 01:12 | Emergency (ER) | payer MEDICARE ==
[2017-04-24] MEDS ORDERED: Isosorbide Mononitrate 30 MG Tab.ER PO SCH (02:00)
[2017-04-24 10:27] VITALS: BP 164/61
--- NOTE | 2017-04-24 11:11 | CR ---
INDICATION: Chest pain. CHEST: An AP portable upright view of the chest 04/24/2017 was compared with and revealed the heart to appear normal in size and shape. The aorta is tortuous and calcified in the arch and descending portion. Overlying EKG leads are noted. Pulmonary vasculature appears congested. Interstitial markings are prominent. These are emphasized by the poor inspiration. The possibility of pulmonary vascular congestion would be a consideration with interstitial lung edema, although interstitial pneumonia would also be a consideration. No gross consolidating pneumonia or significant effusion could be identified. IMPRESSION: 1. Interstitial markings and pulmonary vascular congestion raising question of CHF secondary to acute myocardial event - correlate clinically. Other etiology would include renal failure, fluid overload, and interstitial pneumonia. 2. ASD aorta. 3. Mild dextroconvex scoliosis thoracic spine. MTDD
[2017-04-24] MEDS ORDERED: Aspirin 81 MG Tab.Chew PO ONE (11:19)
--- NOTE | 2017-04-28 10:48 | ER ---
DATE SEEN: 04/24/2017 TIME SEEN: The patient was seen on arrival at 0115 hours. HISTORY OF PRESENT ILLNESS: Ms. Coronado has had intermittent pain between her shoulders. It is worse today and went down the neck to her right elbow. The other concern was for possible myocardial infarction. On 11/30/16, she had a myocardial infarction and was hospitalized at [facility] with documented essential hypertension with blood pressure of 100-200 before arrival and dyslipidemia, lichen simplex chronicus, venous insufficiency, depression, hearing loss, urinary incontinence, stress incontinence, overactive bladder, edema of the lower extremities, nocturia, enuresis, non-STEMI, type 2 diabetes. She apparently in October had a fracture of right pelvis. She was elected to treat it conservatively. Her blood pressures were elevated at 161/117. Mild elevation in troponin, non STEMI noted. She had an echo of 70%, aortic sclerosis, thickening of atrial septum, consistent with lipomatous hypertrophy. She was treated conservatively with aspirin, Crestor, sublingual nitroglycerin p.r.n., hydrochlorothiazide, lisinopril, and followup. She was discharged on carvedilol 6.25 mg, clopidogrel 75 mg, isosorbide mononitrate 30 mg, nitroglycerin 0.4 p.r.n., omeprazole 20 mg daily, potassium chloride 10 mEq long- acting, and lovastatin 10 mg. On November 26, her EKG demonstrated ST elevation in lead III, II and first- degree AV block. Suggestion of TX in anterior leads with T-wave inversion in V1, 2, 3, 4, 5, isoelectric leads in aVF and isoelectric leads in II and inferior leads III, T-wave inversion. The patient has hypertension, status post hysterectomy, one stillborn, diabetes, depression. On examination, her pulse is 57-60, bradycardia noted on EKG, sinus rhythm, 58 heart rate. Abnormal prolonged HI interval at 244 was consistent with first- degree AV block, previously noted. T-wave inversion in V2, V3, V4, and isoelectric V5, which is slightly deeper on the anterior septal leads but is similar to the previous EKG in November 2016. No suggestion of new myocardial infarction, ST-elevation. The latter suggest anterior ischemia. PHYSICAL EXAMINATION: GENERAL: The patient is edentulous. VITAL SIGNS: Blood pressure is 129/82, heart rate regular and 60 rhythm to 57, respiratory rate 18, oxygen saturation 96% on room air, 36.3 degrees centigrade. HEENT: The patient is edentulous, slightly pale disposition, slightly angular facial features because she has absence of dentures. PERRLA intact. There is mild injection of the eyes. TMs negative. Hearing decreased. NECK: No bruits. LUNGS: Occasional rales at the bases, but minimal. HEART: S1, S2. No murmur. ABDOMEN: Soft. No guarding. No abdominal discomfort. No hepatosplenomegaly. Bowel sounds present. Hypoactive. EXTREMITIES: Lower extremities, trace pedal edema. Radial pulses intact. LABORATORY STUDIES: EKG is noted before, T-wave inversion in V1, V2, V3, and V4, anteroseptal ischemia. The depth of the T-wave is just greater than it was in November 2016. However, she does not have any ST elevation. Laboratory values, hemoglobin is 12.1, white count 6600, 8% eosinophils, otherwise platelets 135,000. D-dimer is -206 with sodium 144, potassium 4.2, chloride 106, CO2 of 26, BUN 20, creatinine 0.6, GFR is 59, stage 3 chronic kidney disease. BUN and creatinine ratio slightly increased suggests dehydration at 22. Normal is 9 to 20, so it is minimal dehydration. BNP is slightly elevated 852. Chest x-ray shows mild cephalization. Remainder of CMP is normal. ASSESSMENT: 1. Mild congestive heart failure. 2. She has fluctuation of blood pressures high and low. See nurse's note, but sometimes up to 180s to 190s and her daughter, Phyllis, noted this is higher than usual. On reviewing the chart from [place], she had pressures from 200 to 100, so this is not unusual. 3. She has fluctuation of blood pressures secondary to significant atherosclerotic vascular disease. I am reluctant to use diuretic, may drop the mean arterial pressure, because she has calcific arteries, but consider using amlodipine (Norvasc) 2.5 mg daily. Also add Lasix 20 mg Thursday, Thursday, Thursday. Follow frequent weights. 4. Congestive heart failure. 5. Atherosclerotic vascular disease. 6. Wide swings in blood pressure. 7. Depression. 8. Osteoarthritis. 9. Hearing loss, urine incontinence, overactive bladder, and diabetes without complication. /[id number] MENA/TONI
== END 2017-04-24 05:05 | disposition home or self-care (01) ==
LOC: FB.ED 01:12
DX: I11.0 Hypertensive heart disease with heart failure (principal); I50.9 Heart failure, unspecified; I70.90 Unspecified atherosclerosis; F32.9 Major depressive disorder, single episode, unspecified; M19.90 Unspecified osteoarthritis, unspecified site; N32.81 Overactive bladder; H91.90 Unspecified hearing loss, unspecified ear; E11.9 Type 2 diabetes mellitus without complications; Z91.040 Latex allergy status; Z79.899 Other long term (current) drug therapy
CPT/HCPCS: 71045; 80053; 83880; 84484; 85025; 85379; 85610; 93005; 99284; A9270; 99285

== ENCOUNTER → 2019-01-28 | Outpatient (CLI) | payer MEDICARE, MEDICAID ==
--- NOTE | 2019-01-28 13:38 | CR ---
INDICATION: Cough. CHEST: PA and lateral views of the chest, 01/28/19, were compared with and 11/30/18. Multiple grommets are noted overlying the uppermost chest. Infiltration present in the left mid lung field - perihilar, appears to have decreased significantly compared with the previous study. There remains infiltrate, however, in the posterior basilar segment of the left upper lobe or more likely apical superior segment of the left lower lobe. Resolving pneumonia is suggested. Followup to clearing is recommended. No other change or new acute process was seen. The heart remains normal in size and shape. The aorta is tortuous with calcification in the arch. A dextroconcave scoliosis of the lower middle thoracic spine is again noted. IMPRESSION: Findings are compatible with resolving pneumonia in the superior segment of the left lower lobe. Followup to clearing is recommended. If clinical picture does not suggest pneumonia, CT examination without and with IV contrast may be helpful for further evaluation. MTDD
== END ==
LOC: FB.CLBR 11:07
PROVIDERS: ATTEND Nurse Practitioner Family
DX: R05 Cough (principal); R13.11 Dysphagia, oral phase
CPT/HCPCS: 36415; 71046; 85025